=== PATIENT | male | born 1945 | race Caucasian/White ===

== ENCOUNTER → 2016-06-07 | Outpatient (CLI) | payer MEDICARE | END | disposition home or self-care (01) | LOC: GMAB 10:15 | PROVIDERS: ATTEND Family Medicine | DX: Z12.5 Encounter for screening for malignant neoplasm of prostate (principal); I10 Essential (primary) hypertension | CPT/HCPCS: 84439; 84443; 84481; G0103 ==

== ENCOUNTER → 2016-06-21 | Outpatient (CLI) | payer MEDICARE | END | disposition home or self-care (01) | LOC: GMAB 14:38 | PROVIDERS: ATTEND Family Medicine | DX: R94.6 Abnormal results of thyroid function studies (principal) ==

== ENCOUNTER 2016-06-27 09:51 | Inpatient (IN) | payer MEDICARE ==
--- NOTE | 2016-06-27 11:05 | ED.PDOC ---
History of Present Illness - General Chief Complaint: Respiratory Problem Stated Complaint: weight gain and sob Time Seen by Provider: 06/27/16 10:23 Source: patient Exam Limitations: no limitations - History of Present Illness Initial Comments: Mr. Daryl Reynaga with history of chf,cad stated that he had been gaining weight as well as progressively sob for the last 3 weeks and with exertional dyspnea and two pillow orthopnea no chest pain. Timing/Duration: other - 3 weeks Improving Factors: nothing Worsening Factors: nothing Associated Symptoms: shortness of breath Allergies/Adverse Reactions: Allergies Ibuprofen [From Motrin] Allergy (Mild, Verified 06/27/16 10:11) Rash Home Medications: Ambulatory Orders Amiodarone HCl [Cordarone] 100 mg PO DAILY 12/16/13 Atorvastatin Calcium [Lipitor] 20 mg PO BEDTIME 12/16/13 Carvedilol 25 mg PO BID 12/16/13 Digoxin [Lanoxin] 0.125 mg PO DAILY 12/16/13 Folic Acid 400 mcg PO DAILY 12/16/13 Furosemide 1 - 2 mg PO DAILY 12/16/13 Glipizide 10 mg PO BIDAC 12/16/13 [place] 3 Fatty Acids-[place] 6 FA [[place]-3 & [place]-6 Fish Oi] 1 cap PO BID Potassium Chloride Tab [K-Dur] 20 meq PO BID 12/16/13 Tamsulosin [Flomax] 0.4 mg PO BEDTIME 12/16/13 Aspirin [Aspirin Adult Low Dose] 81 mg PO DAILY 09/18/14 Clopidogrel Bisulfate [Plavix] 75 mg PO QD 09/18/14 Losartan Potassium 12.5 mg PO BEDTIME 09/18/14 Spironolactone 25 mg PO DAILY 09/18/14 Insulin Detemir [Levemir Pen] 30 u SUBCU BEDTIME 12/21/14 Cephalexin Monohydrate [Keflex] 500 mg PO TID #20 cap 01/21/16 Prednisone 5 mg PO QAM #12 tab 01/21/16 Review of Systems - Review of Systems Constitutional: States: no symptoms reported EENTM: States: no symptoms reported Respiratory: States: short of breath Cardiology: States: see HPI, edema Gastrointestinal/Abdominal: States: no symptoms reported Genitourinary: States: no symptoms reported Musculoskeletal: States: no symptoms reported Neurological: States: no symptoms reported Endocrine: States: no symptoms reported Hematologic/Lymphatic: States: no symptoms reported Past Medical History (General) - Patient Medical History Hx Seizures: No Hx Stroke: No Hx Dementia: No Hx Asthma: No Hx of COPD: Yes Hx Cardiac Disorders: Yes - has 7 stents Hx Congestive Heart Failure: Yes Hx Pacemaker: Yes - defibrillator Hx Hypertension: Yes Hx Thyroid Disease: No Hx Diabetes: Yes Hx Gastroesophageal Reflux: No Hx Renal Disease: No Hx Cancer: Yes - Prostate Hx of HIV: No Hx Hepatitis C: No Hx MRSA: No Surgical History: appendectomy, pacemaker, other - cardiac stent, left eye, prostate ,right shoulder ,left ankle - Vaccination History Hx Tetanus, Diphtheria Vaccination: No Hx Influenza Vaccination: No Hx Pneumococcal Vaccination: No - Social History Hx Tobacco Use: Yes Hx Alcohol Use: No Hx Substance Use: No Hx Substance Use Treatment: No Hx Depression: No Hx Physical Abuse: No Hx Emotional Abuse: No - Activities of Daily Living Patient Lives Alone: No - Hospice Agency (if applicable):: None - Female History Patient is a Female of Child Bearing Age (10 -59 yrs old): No Patient : No Family Medical History - Family History Mother Family History: Unknown Living Status: Cause of : "old age" Hx Family Asthma: No Hx Family Congestive Heart Failure: No Hx Family Hypertension: Yes Hx Family Stroke: Yes Hx Cardiac Disease: No Hx Family Diabetes: No Hx Family Cancer: No Hx Family;Other: kidney failure he thinks Father Living Status: Cause of : AR Physical Exam - Physical Exam General Appearance: Alert, Comfortable, No apparent distress Eye Exam: left other - artificial eye Ears, Nose, Throat: hearing grossly normal, normal ENT inspection, normal pharynx Neck: non-tender, full range of motion, supple, normal inspection Respiratory: chest non-tender, lungs clear, normal breath sounds, no respiratory distress, rales Cardiovascular/Chest: normal peripheral pulses, regular rate, rhythm, no gallop , no JVD, no murmur Peripheral Pulses: radial,right: 2+, radial,left: 2+ Gastrointestinal/Abdominal: normal bowel sounds, non tender, soft, no organomegaly, distended Back Exam: normal inspection, no CVA tenderness, no vertebral tenderness Extremity: normal range of motion, non-tender, normal inspection, pedal edema - 2+ Neurologic: no motor/sensory deficits, alert, normal mood/affect, oriented x 3 Skin Exam: normal color, warm/dry Progress - Results/Orders Results/Orders: Laboratory Results WBC 7.4 K/mm3 (4.8-10.8) 06/27/16 10:52 RBC 4.24 M/mm3 (4.70-6.10) L 06/27/16 10:52 Hgb 12.8 gm/dL (14.0-18.0) L 06/27/16 10:52 Hct 39.8 % (42.0-52.0) L 06/27/16 10:52 MCV 93.8 fl (80.0-94.0) 06/27/16 10:52 MCH 30.1 pg (27.0-31.0) 06/27/16 10:52 MCHC 32.1 g/dL (33.0-37.0) L 06/27/16 10:52 RDW 17.9 % (11.5-14.5) H 06/27/16 10:52 Plt Count 126 K/mm3 (130-400) L 06/27/16 10:52 MPV 8.9 fl (7.40-10.4) 06/27/16 10:52 Absolute Neuts (auto) 5.20 K/uL (1.8-6.8) 06/27/16 10:52 Absolute Lymphs (auto) 1.10 K/uL (1.0-3.4) 06/27/16 10:52 Absolute Monos (auto) 0.90 K/uL (0.2-0.8) H 06/27/16 10:52 Absolute Eos (auto) 0.20 K/uL (0.0-0.4) 06/27/16 10:52 Absolute Basos (auto) 0.10 K/uL (0.0-0.1) 06/27/16 10:52 Neutrophils % 70.7 % (42.0-78.0) 06/27/16 10:52 Lymphocytes % 14.5 % (20.0-50.0) L 06/27/16 10:52 Monocytes % 11.7 % (2.0-9.0) H 06/27/16 10:52 Eosinophils % 2.3 % (1.0-5.0) 06/27/16 10:52 Basophils % 0.8 % (0.0-2.0) 06/27/16 10:52 PT 15.7 SECONDS (9.4-12.5) H 06/27/16 10:52 INR 1.390 06/27/16 10:52 PTT (SP) 34.0 SECONDS (25.1-36.5) 06/27/16 10:52 Sodium 139 mmol/L (135-145) 06/27/16 10:52 Potassium 4.4 mmol/L (3.6-5.0) 06/27/16 10:52 Chloride 102 mmol/L (101-111) 06/27/16 10:52 Carbon Dioxide 27 mmol/L (21-31) 06/27/16 10:52 Anion Gap 14.4 (12-18) 06/27/16 10:52 BUN 28 mg/dL (7-18) H 06/27/16 10:52 Creatinine 1.78 mg/dL (0.6-1.3) H 06/27/16 10:52 BUN/Creatinine Ratio 15.7 (10-20) 06/27/16 10:52 Random Glucose 79 mg/dL (70-105) 06/27/16 10:52 Serum Osmolality 281.9 mOsm/L (275-295) 06/27/16 10:52 Calcium 8.7 mg/dL (8.4-10.2) 06/27/16 10:52 Magnesium 1.9 mg/dL (1.8-2.5) 06/27/16 10:52 Total Bilirubin 0.9 mg/dL (0.2-1.0) 06/27/16 10:52 Direct Bilirubin 0.3 mg/dL (0-0.2) H 06/27/16 10:52 Indirect Bilirubin 0.6 mg/dL (0.2-0.8) 06/27/16 10:52 AST 32 IU/L (10-42) 06/27/16 10:52 ALT 28 IU/L (10-60) 06/27/16 10:52 Alkaline Phosphatase 76 IU/L (42-121) 06/27/16 10:52 Creatine Kinase 76 IU/L (38-174) 06/27/16 10:52 CK-MB (CK-2) 3.0 ng/mL (0.0-4.4) 06/27/16 10:52 CK-MB (CK-2) % Not Reportable 06/27/16 10:52 Troponin I 0.03 ng/mL (0.01-0.05) 06/27/16 10:52 B-Natriuretic Peptide 1620.0 pg/ml (0-100) H* 06/27/16 10:52 Serum Total Protein 7.8 gm/dL (6.4-8.2) 06/27/16 10:52 Albumin 3.5 g/dl (3.2-5.5) 06/27/16 10:52 TSH 10.40 uIU/mL (0.34-5.60) H 06/27/16 10:52 Urine Color Yellow (Yellow) 06/27/16 12:00 Urine Appearance Clear (Clear) 06/27/16 12:00 Urine pH 5.5 (4.5-7.8) 06/27/16 12:00 Ur Specific [place] 1.015 (1.005-1.030) 06/27/16 12:00 Urine Protein Negative mg/dL 06/27/16 12:00 Urine Glucose (UA) Negative mg/dL (Negative) 06/27/16 12:00 Urine Ketones Negative mg/dL (NEGATIVE) 06/27/16 12:00 Urine Blood Small (Negative) H 06/27/16 12:00 Urine Nitrite Negative 06/27/16 12:00 Urine Bilirubin Negative (NEGATIVE) 06/27/16 12:00 Urine Urobilinogen 0.2 mg/dL (0.2-1.0) 06/27/16 12:00 Ur Leukocyte Esterase Negative (Negative) 06/27/16 12:00 Urine RBC 0-1 /hpf 06/27/16 12:00 Urine WBC 0-1 /hpf 06/27/16 12:00 Ur Epithelial Cells 0-1 /hpf 06/27/16 12:00 Amorphous Sediment Trace 06/27/16 12:00 Urine Bacteria 0 06/27/16 12:00 - EKG/XRAY/CT Comments: pacemaker rhythm XRAY: chest - cardiomegaly with mild interstitial edema,tiny left pleural effusion Departure - Departure Clinical Impression: Combined congestive systolic and diastolic heart failure Qualifiers: Congestive heart failure chronicity: acute on chronic Qualifier Code: (I50.43) Acute on chronic combined systolic (congestive) and diastolic (congestive) heart failure Hypothyroidism Qualifiers: Hypothyroidism type: unspecified Qualifier Code: (E03.9) Hypothyroidism, unspecified Time of Disposition: 14:10 - ADMIT to hospital D/W Dr. Bean-hospitalist Disposition: Discharge to Home or Self Care Condition: Fair Departure Forms: ED Discharge - Pt. Copy, Patient Portal Self Enrollment Home Medications: Ambulatory Orders Amiodarone HCl [Cordarone] 100 mg PO DAILY 12/16/13 Atorvastatin Calcium [Lipitor] 20 mg PO BEDTIME 12/16/13 Carvedilol 25 mg PO BID 12/16/13 Digoxin [Lanoxin] 0.125 mg PO DAILY 12/16/13 Folic Acid 400 mcg PO DAILY 12/16/13 Furosemide 1 - 2 mg PO DAILY 12/16/13 Glipizide 10 mg PO BIDAC 12/16/13 [place] 3 Fatty Acids-[place] 6 FA [[place]-3 & [place]-6 Fish Oi] 1 cap PO BID Potassium Chloride Tab [K-Dur] 20 meq PO BID 12/16/13 Tamsulosin [Flomax] 0.4 mg PO BEDTIME 12/16/13 Aspirin [Aspirin Adult Low Dose] 81 mg PO DAILY 09/18/14 Clopidogrel Bisulfate [Plavix] 75 mg PO QD 09/18/14 Losartan Potassium 12.5 mg PO BEDTIME 09/18/14 Spironolactone 25 mg PO DAILY 09/18/14 Insulin Detemir [Levemir Pen] 30 u SUBCU BEDTIME 12/21/14 Cephalexin Monohydrate [Keflex] 500 mg PO TID #20 cap 01/21/16 Prednisone 5 mg PO QAM #12 tab 01/21/16
[2016-06-27] MEDS ORDERED: BUMETANIDE 0.25 MG/ML VIAL IV ONE (11:11)
--- NOTE | 2016-06-27 11:51 | RAD ---
Study: Single Frontal View of the Chest. Indication:sob Comparison: January 20, 2016. Impression: Pacemaker. Cardiomegaly with mild interstitial edema. Atherosclerosis aorta. Tiny left pleural effusion. No pneumothorax. Electronically signed by: Bernardino Jamison MD 06/27/2016 11:50 AM SEPARATOR OPERATOR
--- NOTE | 2016-06-27 14:32 | HP ---
HISTORY OF PRESENT ILLNESS: This 71-year-old, white male was admitted to the hospital from the Emergency Room because of worsening shortness of breath and general body edema and weight gain. His increasing shortness of breath has been getting steadily worse for the last 3 weeks. He is having to sit up in order to breathe at nighttime instead of lying down flat. He has gained about 20 pounds of weight in the last 3 weeks as well. He has increased his Lasix to 40 mg b.i.d., but has failed outpatient therapy and is requiring more vigorous inpatient care to remedy some of the worsening symptoms. His last episode of congestive heart failure with pulmonary edema was in December of 2015. He has diabetes mellitus for which he takes Levemir, most recently 28 units at bedtime. Any type of mild exertion results in severe dyspnea. The patient is admitted to the hospital for specific treatment and care. PAST MEDICAL HISTORY: 1. History of diverticulitis. 2. Chronic congestive heart failure of undetermined etiology. 3. Chronic atrial fibrillation. 4. Chronic obstructive pulmonary disease. 5. Prostate cancer with radiation seed implants by Dr. Bowman. 6. Chronic osteoarthritis and hyperlipidemia. PAST SURGICAL HISTORY: 1. Cardiac catheterization with multiple stents placed. 2. Brain tumor resection in 1981. 3. 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 4. Knee surgery. 5. Pacemaker with defibrillator placement. 6. Shoulder surgery. 7. Appendectomy. 8. Recent removal of a clot in his bladder. CURRENT MEDICATIONS: Please refer to nursing list for an up to date list of verified home medications. ALLERGIES: MOTRIN. CODE STATUS: Full code. FAMILY HISTORY: Positive for coronary artery disease and diabetes mellitus. SOCIAL HISTORY: He has stopped smoking a number of years ago. REVIEW OF SYSTEMS: GENERAL: Significant weight gain recently, about 20 pounds in 3 weeks. No fever or chills evident. HEENT: No hearing or visual disturbances. LUNGS: Significant shortness of breath even on mild exertion and even at rest. Orthopnea. Cough without hemoptysis noted. CARDIOVASCULAR: Some irregular pulses with a history of atrial fibrillation. GASTROINTESTINAL: No significant vomiting, but decreased appetite evident. He drinks about half a gallon of water per day. EXTREMITIES: Increased swelling noted recently. NEUROLOGIC: Very tired and inability to do much work. PHYSICAL EXAMINATION: VITAL SIGNS: Afebrile. Pulse 80. Blood pressure 110/70. Pulse oximetry 92% on room air, up to 95% on nasal cannula at 2 liters. Weight 98.9 kg. GENERAL: The patient is awake, alert, oriented and communicative. HEENT: His left eye has a cloudy cornea and appears to be an artificial eye with no sight. NECK: Supple with increased jugular venous distention at about 40 degrees up to almost the angle of the jaw. LUNGS: Diminished breath sounds. Otherwise, an occasional rhonchi in the lateral lung kim. CARDIOVASCULAR: Heart tones have some slight irregularities. No significant gallops. No carotid bruits. ABDOMEN: Somewhat tender to touch, slightly distended with tympany and slight tenderness upon palpation. Bowel tones are present. No organomegaly evident. EXTREMITIES: 2+ pitting edema. NEUROLOGIC: No acute focal neurological deficits are noted. The patient is otherwise awake, alert, oriented and communicative. LABORATORY: White count 7,400, hemoglobin 12.8, INR 1.39. Chemistries show potassium 4.4, BUN 28, creatinine 1.78, glucose 79, calcium 8.7, bilirubin 0.3, direct total of 0.9. Liver enzymes normal. Troponin 0.03. Beta natriuretic peptide elevated at 1620, albumin 3.5, TSH elevated at 10.4. Chest x-ray does reveal some pulmonary edema. ASSESSMENT: 1. Chronic congestive heart failure with acute exacerbation, undetermined etiology, requiring further cardiac followup, having failed outpatient therapy treatment course. 2. Acute pulmonary edema, symptomatic, with orthopnea, weight gain, and extreme exertional dyspnea. 3. History of chronic obstructive pulmonary disease in an ex-smoker. 4. Diabetes mellitus on insulin therapy requiring adjustments of medications to assist with control. 5. Chronic renal insufficiency, slightly worse than usual with creatinine elevated. 6. Recent weight gain, probable fluid retention, contributing to the congestive heart failure. 7. Acute hypothyroidism, new diagnosis, with treatment and supplementation begun. 8. 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 PLAN: The patient is admitted to the hospital for fluid restrictions, parenteral diuresis, close followup and management to prevent further worsening of his kidney failure. Observe closely the pulmonary edema. Diabetic management to continue. Levemir and SCDs to assist with DVT prophylaxis. Close followup suggested. #[id number] [facility]
[2016-06-27] MEDS ORDERED: LEVALBUTEROL NEBS 1.25 MG/3 ML VIAL INH PRN (15:20)
[2016-06-27] MEDS ORDERED: DEXTROSE 50% 25 GM/50 ML SYG IV PRN (15:20)
[2016-06-27] MEDS ORDERED: GLUCAGON INJ 1 MG VIAL SUBCU PRN (15:20)
[2016-06-27] MEDS ORDERED: ONDANSETRON INJ 4 MG/2 ML VIAL IV PRN (15:20)
[2016-06-27] MEDS ORDERED: NITROGLYCERIN 0.4 MG 25 EA TAB SL PRN (15:20)
[2016-06-27] MEDS ORDERED: MAGNESIUM HYDROXIDE 30 ML UD PO PRN (15:20)
[2016-06-27] MEDS ORDERED: IV SET AND CAP CHANGE INJ INJ SCH (15:30)
[2016-06-27] MEDS ORDERED: POTASSIUM CHLORIDE 10 MEQ TAB PO ONE (15:51)
[2016-06-27] MEDS ORDERED: FUROSEMIDE INJ 40 MG/4 ML VIAL ONE (15:52)
[2016-06-27] MEDS ORDERED: ENOXAPARIN SODIUM 30 MG/0.3 ML SYG SUBCU ONE (15:52)
[2016-06-27] MEDS ORDERED: MAGNESIUM HYDROXIDE 30 ML UD PO ONE (16:15)
[2016-06-27] MEDS: ENOXAPARIN SODIUM 30 MG/0.3 ML SYG SUBCU SCH (16:26)
[2016-06-27] MEDS: BUMETANIDE TAB 2 MG TAB PO SCH (16:26)
[2016-06-27] MEDS: glipiZIDE 5 MG TAB PO SCH (16:30)
[2016-06-27] MEDS: DIGOXIN 0.125 MG TAB PO SCH (16:31)
[2016-06-27] MEDS: FUROSEMIDE INJ 40 MG/4 ML VIAL IV SCH (16:54)
[2016-06-27] MEDS: INSULIN LISPRO 100 UNITS/ML PEN SUBCU SCH ×2 (16:54→21:07)
[2016-06-27] MEDS: POTASSIUM CHLORIDE 10 MEQ TAB PO SCH (16:55)
[2016-06-27] MEDS ORDERED: LEVOTHYROXINE SODIUM 0.075 MG TAB ONE (20:02)
[2016-06-27] MEDS: SODIUM CHLORIDE 0.9% (FLUSH) 10 ML SYG IV SCH ×2 (20:29→20:30)
[2016-06-27] MEDS: LOSARTAN POTASSIUM 25 MG TAB PO SCH ×2 (20:29→20:30)
[2016-06-27] MEDS: IPRATROPIUM/ALBUTEROL 3 ML VIAL INH SCH (21:25)
[2016-06-28] MEDS: LEVOTHYROXINE SODIUM 0.075 MG TAB PO SCH (06:09)
[2016-06-28] MEDS: glipiZIDE 5 MG TAB PO SCH ×2 (06:32→16:49)
[2016-06-28] MEDS ORDERED: AMIODARONE HCL 200 MG TAB ONE (07:15)
[2016-06-28] MEDS ORDERED: SPIRONOLACTONE 25 MG TAB ONE (07:15)
[2016-06-28] MEDS ORDERED: ASPIRIN EC 81 MG TAB PO ONE (07:16)
[2016-06-28] MEDS ORDERED: predniSONE 5 MG TAB ONE (07:16)
[2016-06-28] MEDS: INSULIN LISPRO 100 UNITS/ML PEN SUBCU SCH ×4 (07:36→21:09)
[2016-06-28] MEDS: POTASSIUM CHLORIDE 10 MEQ TAB PO SCH ×2 (07:46→16:49)
[2016-06-28] MEDS: IPRATROPIUM/ALBUTEROL 3 ML VIAL INH SCH ×4 (08:34→19:25)
[2016-06-28] MEDS ORDERED: ASPIRIN (CHEWABLE) 81 MG TAB PO SCH (09:00)
[2016-06-28] MEDS: ASPIRIN EC 81 MG TAB PO SCH (09:11)
[2016-06-28] MEDS: BUMETANIDE TAB 2 MG TAB PO SCH (09:12)
[2016-06-28] MEDS: AMIODARONE HCL 200 MG TAB PO SCH (09:12)
[2016-06-28] MEDS: SPIRONOLACTONE 25 MG TAB PO SCH (09:13)
[2016-06-28] MEDS: FUROSEMIDE INJ 40 MG/4 ML VIAL IV SCH ×2 (09:13→16:50)
[2016-06-28] MEDS: SODIUM CHLORIDE 0.9% (FLUSH) 10 ML SYG IV SCH ×2 (09:13→20:32)
[2016-06-28] MEDS: predniSONE 5 MG TAB PO SCH (09:14)
[2016-06-28] MEDS ORDERED: CARVEDILOL 3.125 MG TAB PO SCH (10:00)
[2016-06-28] MEDS: DIGOXIN 0.125 MG TAB PO SCH (11:43)
[2016-06-28] MEDS: ENOXAPARIN SODIUM 30 MG/0.3 ML SYG SUBCU SCH (16:30)
[2016-06-28] MEDS: SODIUM CHLORIDE 0.9% (FLUSH) 10 ML SYG IV PRN (16:50)
--- NOTE | 2016-06-28 17:01 | PN ---
DATE: 06/28/16 SUBJECTIVE: The patient is sitting in the bed with his head elevated. He states that he feels better today with less edema. He still is on some oxygen supplementation but will be checked over by ambulation study to see if his needs for the oxygen persist or are they actually improving. OBJECTIVE: Significantly low blood pressure is noted with systolic in the 90s, afebrile, pulse oximetry 97% on nasal cannula, 95% on room air. Weight is generally stable. Intake and output shows a little bit more out than in, but still not significant. LUNGS: Slightly clear with slight improved respiratory lung sounds. ABDOMEN: Soft. LABORATORY: Hemoglobin 11.8. Chemistry shows potassium 3.7, BUN 30, creatinine is down to 1.64 while sugar this morning is only 61 fasting even off of his evening Levemir 30 units at bedtime dose from last night. He continues on sliding scale. Recheck beta natriuretic protein in the morning. ASSESSMENT: 1. Chronic congestive heart failure with an acute exacerbation of undetermined etiology requiring further cardiac evaluation with echocardiogram and followup after failed outpatient therapy treatment course. 2. Acute pulmonary edema, symptomatic with orthopnea, weight gain and exertional dyspnea. 3. History of chronic obstructive pulmonary disease in an ex-smoker. 4. Diabetes mellitus on insulin therapy requiring adjustments of medications to assist with control. 5. Chronic renal insufficiency slightly worse than usual with elevated creatinine level. 6. Recent weight gain, probable fluid retention contributing to the congestive heart failure exacerbation. 7. Acute hypothyroidism, new diagnosis with treatment and supplementation initiated. 8. 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 PLAN: Decreased dosing of insulin is to be initiated as well as a cut back on the Coreg because of the significantly low blood pressure. Increase activity level and observe response. Consider continued outpatient therapy and followup with Dr. Ríos in the clinic tomorrow if clinically stable. #[id number] [facility]
[2016-06-28] MEDS: LOSARTAN POTASSIUM 25 MG TAB PO SCH (20:32)
[2016-06-28] MEDS: CARVEDILOL 3.125 MG TAB PO SCH (20:32)
[2016-06-28] MEDS ORDERED: INSULIN DETEMIR 100 UNITS/ML PEN SUBCU SCH (21:00)
[2016-06-28] MEDS ORDERED: INSULIN DETEMIR 100 UNITS/ML PEN SUBCU ONE (21:05)
[2016-06-29] MEDS: LEVOTHYROXINE SODIUM 0.075 MG TAB PO SCH (06:02)
[2016-06-29] MEDS: glipiZIDE 5 MG TAB PO SCH ×2 (06:31→16:56)
[2016-06-29] MEDS: INSULIN LISPRO 100 UNITS/ML PEN SUBCU SCH ×4 (07:28→21:47)
[2016-06-29] MEDS: POTASSIUM CHLORIDE 10 MEQ TAB PO SCH ×2 (07:51→16:56)
[2016-06-29] MEDS: IPRATROPIUM/ALBUTEROL 3 ML VIAL INH SCH ×4 (08:30→20:30)
[2016-06-29] MEDS: BUMETANIDE TAB 2 MG TAB PO SCH (09:00)
[2016-06-29] MEDS: SPIRONOLACTONE 25 MG TAB PO SCH (09:01)
[2016-06-29] MEDS: ASPIRIN EC 81 MG TAB PO SCH (09:01)
[2016-06-29] MEDS: AMIODARONE HCL 200 MG TAB PO SCH (09:01)
[2016-06-29] MEDS: CARVEDILOL 3.125 MG TAB PO SCH ×2 (09:01→21:25)
[2016-06-29] MEDS: predniSONE 5 MG TAB PO SCH (09:01)
[2016-06-29] MEDS: SODIUM CHLORIDE 0.9% (FLUSH) 10 ML SYG IV SCH ×2 (09:02→21:27)
[2016-06-29] MEDS: FUROSEMIDE INJ 40 MG/4 ML VIAL IV SCH ×2 (09:02→16:58)
[2016-06-29] MEDS ORDERED: methylPREDNISolone SODIUM SUC 125 MG/2 ML VIAL IV ONE (11:51)
[2016-06-29] MEDS ORDERED: BUMETANIDE 0.25 MG/ML VIAL IV ONE (11:51)
[2016-06-29] MEDS: SODIUM CHLORIDE 0.9% (FLUSH) 10 ML SYG IV PRN (12:51)
[2016-06-29] MEDS: DIGOXIN 0.125 MG TAB PO SCH (12:51)
--- NOTE | 2016-06-29 13:06 | US ---
EXAM DESCRIPTION: Urinary bladder ultrasound. CLINICAL HISTORY: 71 years Male, retention COMPARISON: None. TECHNIQUE: Soft tissue grayscale ultrasound of the urinary bladder to include pre and post void residuals. FINDINGS: Urinary bladder was imaged. The prevoid bladder volume was 214 mL. The post void urinary bladder volume was 180 mL. IMPRESSION: High post void residual urinary bladder volume. Electronically signed by: Stanford Ambriz MD 06/29/2016 1:04 PM EXTRUSION MACHINE OPERATOR
[2016-06-29] MEDS: ENOXAPARIN SODIUM 30 MG/0.3 ML SYG SUBCU SCH (16:56)
--- NOTE | 2016-06-29 20:49 | PN ---
DATE: 06/29/16 SUPERVISING PHYSICIAN: Reji Bean M.D. SUBJECTIVE: The patient is sitting on the side of his bed. He has no complaints of shortness of breath or chest pain. He also says his edema is better but he is having a difficult time urinating. He said he has had surgery in the past and he has a difficult time urinating, and sometimes he retains a lot of urine. OBJECTIVE: VITAL SIGNS: He is afebrile, heart rate 72, blood pressure 113/72, respiratory rate 18, O2 sat is 93% on 2 liters nasal cannula. RESPIRATORY: Essentially clear bilaterally. He does have a few scattered crackles. CARDIAC : Regular rate and rhythm. ABDOMEN: Slightly distended, non-tender. Bowel sounds are positive. NEUROLOGIC: He is awake, alert and oriented times three. LABORATORY: His H&H has stabilized at 11.8 and 36.5. BUN 30, creatinine is slightly improved from yesterday at 1.54. BNP is 1,750, two days ago it was 1, 620. Urinary bladder ultrasound shows the prevoid bladder volume is 214 mL, the postvoid urinary bladder volume was 180 with an impression of a high postvoid residual of urinary bladder volume. All other labs and films have been reviewed via the EMR. ASSESSMENT: 1. Chronic congestive heart failure with an acute exacerbation of undetermined etiology requiring further cardiac evaluation with echocardiogram and followup after failed outpatient therapy treatment course. 2. Acute pulmonary edema, symptomatic with orthopnea, weight gain and exertional dyspnea that has improved. 3. History of chronic obstructive pulmonary disease in an ex-smoker. 4. Diabetes mellitus type 2 on insulin. 5. Chronic renal insufficiency that is slightly improved. 6. Recent weight gain probably fluid retention contributing to the congestive heart failure exacerbation. 7. Acute hypothyroidism. 8. 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 PLAN: I have increased his insulin to 15 units at bedtime. I have also given him an additional 1 mg IV Bumex as he had a 0.7 kg weight gain overnight. I am also going to place a Harris catheter to help with his urinary retention as well as for an accurate I and O. Hopefully we can discontinue that tomorrow. It may be prudent to have him do a urology consultation. He has seen in the past. He does have home oxygen and today his saturations have been better. He has no complaints of shortness of breath, so we discussed at length the need for oxygen at home and that it may help him when he is using any exertion. His ambulatory study showed that he dropped to 87% during ambulation and he recovered back to 92, so we will again encourage him to use his oxygen at home. Will continue to encourage good pulmonary hygiene. Hopefully he can be discharged tomorrow with close followup with his grocery supervisor. Dr. Bean is the collaborating physician and available for consultation. #[id number] [facility]
[2016-06-29] MEDS ORDERED: INSULIN DETEMIR 100 UNITS/ML PEN SUBCU SCH (21:00)
[2016-06-29] MEDS: LOSARTAN POTASSIUM 25 MG TAB PO SCH (21:25)
[2016-06-30 01:16] VITALS: BP 104/64; TEMP 98.7; O2SAT 88
--- NOTE | 2016-06-30 09:18 | DS ---
SUPERVISING PHYSICIAN: Reji Bean MD DISCHARGE DIAGNOSIS: 1. Urinary retention for greater than 10 hours with inability to place a Harris catheter or straight cath the patient. 2. Chronic congestive heart failure with an acute exacerbation of undetermined etiology, requiring further cardiac evaluation with echocardiogram and followup after failed outpatient therapy treatment course. 3. Acute pulmonary edema, symptomatic, with orthopnea, weight gain, and exertional dyspnea, improved. 4. History of chronic obstructive pulmonary disease in an ex-smoker. 5. Diabetes mellitus, type 2, on insulin. 6. Chronic renal insufficiency, improved. 7. Recent weight gain, most likely due to fluid retention. 8. Acute hypothyroidism. 9. 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 HISTORY OF PRESENT ILLNESS: This is a 71-year-old male patient who was admitted to the hospital from the Emergency Room on 06/27/16 because of worsening shortness of breath and general body edema and weight gain. His increasing shortness of breath had been getting steadily worse for the last 3 weeks. He had orthopnea and was unable to lie flat. He had gained about 20 pounds of weight in the last 3 weeks. He had increased his Lasix to 40 mg b.i.d., but failed outpatient therapy and was requiring more vigorous inpatient care. His last episode of congestive heart failure with pulmonary edema was in December of 2015. He has diabetes mellitus for which he takes Levemir. The patient was admitted to the hospital for specific treatment and care. He had a BNP of over 1600. He was initially given fluid restrictions as well as parenteral diuresis. His kidney functions were also monitored closely. He had some adjustments on his Levemir due to his low blood sugars. His dyspnea lessened and his vital signs were stable. This morning, he had a slight weight gain and he felt like he was still somewhat congested. His kidney function had improved to a creatinine of 1.54, but his BNP was about the same as it was two days ago at about 1750. He was given an additional dosing of 1 mg of Bumex in addition to his previous p.o. diuretics. Early in the afternoon, he had complained of inability to urinate and he felt some pressure in his bladder area. Bladder ultrasound was done and he had about 200 mL of urine. Since that time, he has had less than 140 mL of urine out and he has received the additional dosing of Bumex. I ordered a Harris catheter to be placed and a catheter, nor a straight cath was successful. The patient was very miserable. He not urinated for over ten hours. I called [facility] and Dr. Bowman wanted the patient transferred to [facility]. Dr. Park, who is the hospitalist at [facility], accepted him in transfer. DISCHARGE PLAN: The patient will be discharged to [facility]. [facility] hospitalist, Dr. Park, is the accepting physician and Dr. Bowman will be consulted. He will be transported by ambulance. He is to have a diabetic diet. His home medications were sent with his discharge information. DISCHARGE MEDICATIONS: 1. Carvedilol. 2. Lipitor. 3. Lanoxin. 4. Folic acid. 5. Furosemide. 6. Glipizide. 7. [place] 3 fatty acids. 8. K-Dur. 9. Amiodarone. 10. Spironolactone. 11. Losartan. 12. Aspirin. 13. Plavix. 14. Prednisone. 15. Levemir. Dr. Bean is the collaborating physician and available for consultation. #[id number] [facility]
[2016-06-30] MEDS ORDERED: INSULIN DETEMIR 100 UNITS/ML PEN SUBCU SCH (21:00)
== END 2016-06-30 00:50 | disposition short-term general hospital (02) | DRG 291 ==
LOC: ER 09:51 → MS 14:31
PROVIDERS: ADMIT Emergency Medicine; ATTEND Nurse Practitioner Acute Care
DX: I13.0 Hypertensive heart and chronic kidney disease with heart failure and stage 1 through stage 4 chronic kidney disease, or unspecified chronic kidney disease (principal); I50.43 Acute on chronic combined systolic (congestive) and diastolic (congestive) heart failure; I48.2 Chronic atrial fibrillation; N18.9 Chronic kidney disease, unspecified; J44.9 Chronic obstructive pulmonary disease, unspecified; E03.9 Hypothyroidism, unspecified; E11.9 Type 2 diabetes mellitus without complications; E78.5 Hyperlipidemia, unspecified; M19.90 Unspecified osteoarthritis, unspecified site; I25.10 Atherosclerotic heart disease of native coronary artery without angina pectoris; Q15.0 Congenital glaucoma; Z85.46 Personal history of malignant neoplasm of prostate; Z95.5 Presence of coronary angioplasty implant and graft; Z95.810 Presence of automatic (implantable) cardiac defibrillator; Z88.6 Allergy status to analgesic agent; Z87.891 Personal history of nicotine dependence; Z79.4 Long term (current) use of insulin; Z90.01 Acquired absence of eye; Z79.899 Other long term (current) drug therapy; Z79.82 Long term (current) use of aspirin; Z79.52 Long term (current) use of systemic steroids

== ENCOUNTER 2016-07-18 17:40 | Inpatient (IN) | payer MEDICARE ==
--- NOTE | 2016-07-18 18:05 | HP ---
HISTORY OF PRESENT ILLNESS: This 71 year-old white male is admitted to the hospital as a transfer from [facility] for Swing Bed admission and special rehabilitation for strengthening to allow him to safely return home when more capable of self care. He has had a significant recent past history in that he was admitted to our hospital the first of June but developed significant bladder outlet obstruction and they were unable to get a catheter placed, and he was transferred to [facility] on 06/30/16. He was evaluated by Dr. Bowman who did a repeat TURP to allow his bladder to more completely empty on 07/03/16. He was discharged from the hospital with catheter in place on 07/04/16. He went home but had increasing weight, increasing edema, increasing shortness of breath and marked weakness, and was readmitted to [facility] on 07/11/16 with blatant and worsening acute exacerbation of congestive heart failure. His beta natriuretic peptide was 2,200. He had increasing weight, edema and pulmonary edema on chest x-ray. His weight apparently was approximately 232, according to the patient, and it was down about 8 pounds to 224 pounds close to the time of his discharge today to our hospital for Swing Bed rehabilitation. He was feeling much improved but was still very weak to the point he was unable to fully manage his activities of daily living without increasing strength especially with legs being very weak. No recent falling. Shortness of breath is improved at rest, but he still get dyspneic on exertion. He has entered into Physical Therapy supervised rehabilitation combined with cardiopulmonary rehabilitation for strengthening purposes. PAST MEDICAL HISTORY: 1. History of diverticulitis. 2. Chronic congestive heart failure of undetermined etiology. 3. Chronic atrial fibrillation. 4. Chronic obstructive pulmonary disease. 5. History of prostate cancer with radiation seed implants by Dr. Bowman. 6. Chronic osteoarthritis with hyperlipidemia. 7. He has had an anterior wall myocardial infarction in 1990 and another anterolateral wall myocardial infarction in 2000. Recurring angioplasties and echocardiograms in the past, results not available. 8. History of severe aortic stenosis. 9. History of hypertension. 10. Elevated lipids. 11. Chronic renal insufficiency. 12. Left internal carotid artery and right internal carotid artery 30% stenosis. 13. Chronic obstructive pulmonary disease in an ex-smoker. 14. History of prostate cancer. PAST SURGICAL HISTORY: 1. Transurethral resection of the prostate in 2010 with radiation seed implants in the prostate in 2010. 2. Lumbar fusion in 2011. 3. Right knee arthroplasty in 1979. 4. Right shoulder surgery in 1973. 5. Intracardiac defibrillator implantation in 2005 with generator changed in 2011 and an upgrade in 2013. 6. Shoulder surgery. 7. Appendectomy in the past. 8. Removal of a clot from his bladder recently. 9. 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 10. Brain tumor resection in 1981. CURRENT MEDICATIONS: Please refer to nurses' list for a list of up to date verified home medications. ALLERGIES: MOTRIN. CODE STATUS: FULL CODE. FAMILY HISTORY: Positive for coronary artery disease and diabetes mellitus. SOCIAL HISTORY: The patient stopped smoking a number of years ago. He lives at home with his and 3 children. REVIEW OF SYSTEMS: Some weight gain recently. No fever or chills. HEENT: No hearing disturbances but decreased vision because of loss of the eye. LUNGS: Significant shortness of breath upon exertion showing some improvement. No significant cough. and less orthopnea. CARDIOVASCULAR: No palpitations or chest pains. GASTROINTESTINAL: Appetite is fairly good. EXTREMITIES: Less swelling now with treatment. NEUROLOGIC: Very tired and having difficulty in ambulating. PHYSICAL EXAMINATION: VITAL SIGNS: Afebrile, pulse 90, blood pressure 104/73, respirations 24, pulse oximetry pending. Weight was recorded as 101.6 kilos. Followup suggested. GENERAL: The patient is awake, alert and oriented. He is in no acute distress. He is able to give a good history. No other family members are present. His coloration is improved. CHEST: Lungs have some diminished breath sounds bilaterally but much clearer than before. CARDIOVASCULAR: Heart tones are somewhat distant and a very prominent systolic murmur suggesting an aortic valve stenosis located over the left anterior chest with radiation up towards the base of the heart. ABDOMEN: Generally soft, slightly obese with tympani present and bowel tones are fairly normal. EXTREMITIES: Much improved with decreased pitting edema. His ZAIDA hose are below the knee and have a tight tourniquet effect which is relieved by cutting the top 2 inches of the ZAIDA hose to release the significant tourniquet effect. NEUROLOGIC: He is weak, somewhat difficult in being able to transfer out of the bed and will require cardiopulmonary and physical therapy strengthening and exercise tolerance to see if we can increase his ability to function. LABORATORY: Pending. ASSESSMENT: 1. History of significant congestive heart failure with significant disability with decompensation showing improvement with diuresis and fluid restrictions. Etiology is to be determined. 2. Chronic obstructive pulmonary disease in an ex-smoker. 3. Severe cardiomegaly with ejection fraction noted to be 25% ischemic in origin. 4. History of pacemaker defibrillator implantation. 5. History of coronary artery disease with several myocardial infarctions in the past with total occlusion of the left anterior descending and the right coronary arteries with stent placements noted. 6. History of ventricular tachycardia in the past requiring shock therapy. 7. Chronic pulmonary hypertension with cor pulmonale. 8. History of hypertension. 9. History of hyperlipidemia. 10. Diabetes mellitus on insulin therapy. 11. Chronic renal insufficiency with a recent exacerbation showing improvement probably aggravated by congestive heart failure. 12. Recent history of urinary retention requiring recurrent transurethral resection of the prostate to open the bladder outlet and urological followup suggested. 13. Severe aortic stenosis. 14. History of hypothyroidism on supplementation. 15. 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 PLAN: The patient is admitted to Swing Bed for initiation of physical therapy and respiratory therapy monitored rehabilitation and strengthening. Close observation of daily weight and electrolytes are initiated with lab studies in the morning. Close followup suggested. The patient is generally doing a little better now than he has in the past and we hope that his strength will steadily improve to the point where he will be able to return home after the next few days of therapy. #[id number] [facility]
[2016-07-18] MEDS ORDERED: IPRATROPIUM/ALBUTEROL 3 ML VIAL NEB PRN (19:14)
[2016-07-18] MEDS ORDERED: DEXTROSE 50% 25 GM/50 ML SYG IV PRN (20:00)
[2016-07-18] MEDS ORDERED: HYDROcodone 5MG/APAP 325MG 1 EA TAB PO PRN (20:00)
[2016-07-18] MEDS ORDERED: SODIUM PHOS/BIPHOS ENEMA ADULT 133 ML BTTL PR PRN (20:00)
[2016-07-18] MEDS ORDERED: LEVALBUTEROL NEBS 1.25 MG/3 ML VIAL INH PRN (20:00)
[2016-07-18] MEDS: IPRATROPIUM/ALBUTEROL 3 ML VIAL INH SCH (20:00)
[2016-07-18] MEDS ORDERED: ACETAMINOPHEN 500 MG TAB PO PRN (20:00)
[2016-07-18] MEDS ORDERED: GLUCAGON INJ 1 MG VIAL SUBCU PRN (20:00)
[2016-07-18] MEDS ORDERED: IPRATROPIUM/ALBUTEROL 3 ML VIAL NEB ONE (20:00)
[2016-07-18] MEDS ORDERED: NON-FORMULARY MEDICATION 1 EA MIS (Carvedilol [Carvedilol] 6.25 MG) PO SCH (21:00)
[2016-07-18] MEDS ORDERED: ENOXAPARIN SODIUM 40 MG/0.4 ML SYG SUBCU SCH (21:00)
[2016-07-18] MEDS ORDERED: CARVEDILOL 3.125 MG TAB ONE (21:47)
[2016-07-18] MEDS ORDERED: ENOXAPARIN SODIUM 30 MG/0.3 ML SYG SUBCU ONE (21:48)
[2016-07-18] MEDS: SPIRONOLACTONE 25 MG TAB PO SCH (22:01)
[2016-07-18] MEDS: LOSARTAN POTASSIUM 25 MG TAB PO SCH (22:02)
[2016-07-18] MEDS: INSULIN DETEMIR 100 UNITS/ML PEN SUBCU SCH (22:47)
[2016-07-19] MEDS: LEVOTHYROXINE SODIUM 0.075 MG TAB PO SCH (05:53)
[2016-07-19] MEDS ORDERED: LEVOTHYROXINE SODIUM 0.075 MG TAB PO SCH (06:30)
[2016-07-19] MEDS ORDERED: INSULIN LISPRO 100 UNITS/ML PEN SUBCU SCH (07:00)
[2016-07-19] MEDS ORDERED: NON-FORMULARY MEDICATION 1 EA MIS (Glipizide [Glipizide] 10 MG) PO SCH (07:00)
[2016-07-19] MEDS ORDERED: CARVEDILOL 3.125 MG TAB ONE (07:12)
[2016-07-19] MEDS ORDERED: glipiZIDE 5 MG TAB ONE (07:13)
[2016-07-19] MEDS: glipiZIDE 5 MG TAB PO SCH ×2 (07:36→16:34)
[2016-07-19] MEDS: IPRATROPIUM/ALBUTEROL 3 ML VIAL INH SCH ×4 (08:32→20:25)
[2016-07-19] MEDS ORDERED: TOLTERODINE TARTRATE ER 4 MG CAP PO SCH (09:00)
[2016-07-19] MEDS ORDERED: THEOPHYLLINE 200 MG PO SCH (09:00)
[2016-07-19] MEDS ORDERED: FOLIC ACID 400 MCG PO SCH (09:00)
[2016-07-19] MEDS: AMIODARONE HCL 200 MG TAB PO SCH (09:03)
[2016-07-19] MEDS: ASPIRIN EC 81 MG TAB PO SCH (09:04)
[2016-07-19] MEDS: DOCUSATE SODIUM 100 MG CAP PO SCH (09:04)
[2016-07-19] MEDS: predniSONE 5 MG TAB PO SCH (09:04)
[2016-07-19] MEDS: CARVEDILOL 3.125 MG TAB PO SCH ×2 (09:05→20:42)
[2016-07-19] MEDS: SPIRONOLACTONE 25 MG TAB PO SCH ×2 (09:05→20:42)
[2016-07-19] MEDS: FUROSEMIDE 40 MG TAB PO SCH (09:05)
[2016-07-19] MEDS: FOLIC ACID 1 MG TAB PO SCH (09:29)
[2016-07-19] MEDS: DIGOXIN 0.125 MG TAB PO SCH (12:11)
[2016-07-19] MEDS: INSULIN LISPRO 100 UNITS/ML PEN SUBCU SCH (16:32)
--- NOTE | 2016-07-19 19:05 | PN ---
DATE: 07/19/16 SUPERVISING PHYSICIAN: Tejas Peck M.D. SUBJECTIVE: The patient is sitting in bed eating lunch. Says he still feels weak but his shortness of breath has been okay with oxygen continued. He has been doing fairly well with his initial rehab attempts. He remains afebrile. He did have some urinary retention requiring placement of a Harris catheter and since has not had any complaints. OBJECTIVE: VITAL SIGNS: T max 97.8, pulse 80, blood pressure 108/75, respirations 18, O2 sat 97% on room air at rest. I's and O's show 515 in, 1100 out with a negative balance of 585. Weight 102.3 kg. GENERAL: The patient appears to be in no distress, resting comfortably. CHEST: Lungs are diminished slightly towards the bases, but no obvious wheezing or rhonchi. HEART: Regular rate and rhythm, but notable systolic murmur. ABDOMEN: Soft, obese but non- tender. Positive bowel sounds. EXTREMITIES: Knee high ZAIDA hose are in place. No obvious edema noted. NEUROLOGIC: He is alert and oriented times three. LABORATORY: Initial on admission CBC showed white count 6.8, hemoglobin 11.7, hematocrit 36.2, platelet count 132,000. Differential showed to be within normal limits. Chemistries showed sodium 131, potassium 4.1, BUN 38, creatinine 1.63, glucose 185, calcium 8.5. Urinalysis is pending. RADIOLOGY: There are no radiographic studies for review on admission. ASSESSMENT: 1. History of significant congestive heart failure with significant disability with decompensation showing improvement with diuresis and fluid restrictions. Etiology is unknown. 2. Chronic obstructive pulmonary disease in an ex-smoker. 3. Severe cardiomegaly with ejection fraction noted to be 25% ischemic in origin. 4. History of pacemaker defibrillator implantation. 5. History of urinary tract infection on Acute Care with final culture results showing Enterococcus faecalis with completion of treatment for Swing Bed admission. 6. History of coronary artery disease with several myocardial infarctions in the past with total occlusion of the left anterior descending and the right coronary arteries with stent placements noted. 7. History of ventricular tachycardia in the past requiring shock therapy, now stable. 8. Chronic pulmonary hypertension with cor pulmonale. 9. History of hypertension. 10. History of hyperlipidemia. 11. Diabetes mellitus on insulin therapy. 12. Chronic renal insufficiency with a recent exacerbation showing some improvement probably aggravated by congestive heart failure. 13. Recent history of urinary retention requiring recurrent transurethral resection of the prostate to open the bladder outlet and urological followup suggested with the patient having acute renal retention after admission to Swing Bed requiring Harris placement. 14. Severe aortic stenosis. 15. History of hypothyroidism on supplementation. 16. 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 PLAN: Will continue to follow the patient closely through his physical therapy and rehabilitation on Swing Bed admission. Will note his daily weights and follow the patient closely, and provide medical as needed. He has a Harris catheter in place currently which will stay in place with intentions of removing within the next 24 to 48 hours with the patient having a significant history of past TURP and some acute urinary retention. Will need close monitoring and followup with Urology. Until discharge, hopefully anticipated within the next 3 to 4 days. Will continue to follow the patient closely and treat appropriately. #[id number] [facility]
[2016-07-19] MEDS ORDERED: ENOXAPARIN SODIUM 40 MG/0.4 ML SYG SUBCU ONE (19:44)
[2016-07-19] MEDS: LOSARTAN POTASSIUM 25 MG TAB PO SCH (20:42)
[2016-07-19] MEDS: ENOXAPARIN SODIUM 40 MG/0.4 ML SYG SUBCU SCH (20:43)
[2016-07-19] MEDS: INSULIN DETEMIR 100 UNITS/ML PEN SUBCU SCH (20:55)
[2016-07-19] MEDS ORDERED: ALPRAZolam 0.25 MG TAB PO ONE (23:23)
[2016-07-20] MEDS: LEVOTHYROXINE SODIUM 0.075 MG TAB PO SCH (06:12)
[2016-07-20] MEDS: INSULIN LISPRO 100 UNITS/ML PEN SUBCU SCH ×2 (07:12→16:53)
[2016-07-20] MEDS: IPRATROPIUM/ALBUTEROL 3 ML VIAL INH SCH ×4 (07:51→21:18)
[2016-07-20] MEDS: glipiZIDE 5 MG TAB PO SCH ×2 (08:09→16:49)
[2016-07-20] MEDS: NON-FORMULARY MEDICATION 1 EA MIS (Fluticasone Furoate-Vilanterol [Breo Ellipta 200-25 Mcg INH SCH (08:43)
--- NOTE | 2016-07-20 09:16 | PCM.CORE ---
Physician DVT/VTE - Nurse DVT Assessment & Total Each Risk Factor Represents 3 Points: Age over 75 years Each Risk Factor Represents 2 Points: Confined to bed >72 hours Each Risk Factor is 1 Point: Serious Lung disease (pnemonia <1month, COPD, emphysema,etc) DVT Assessment Score: 6 - 5 or more Very High Risk Treatments: Early Ambulation *, Sequential Compression Device Pharmacological: Enoxaparin 40mg SQ Daily
[2016-07-20] MEDS: AMIODARONE HCL 200 MG TAB PO SCH (09:31)
[2016-07-20] MEDS: predniSONE 5 MG TAB PO SCH (09:34)
[2016-07-20] MEDS: ASPIRIN EC 81 MG TAB PO SCH (09:34)
[2016-07-20] MEDS: CARVEDILOL 3.125 MG TAB PO SCH ×2 (09:34→21:05)
[2016-07-20] MEDS: FOLIC ACID 1 MG TAB PO SCH (09:34)
[2016-07-20] MEDS: SPIRONOLACTONE 25 MG TAB PO SCH ×2 (09:34→21:05)
[2016-07-20] MEDS: FUROSEMIDE 40 MG TAB PO SCH (09:34)
[2016-07-20] MEDS: DOCUSATE SODIUM 100 MG CAP PO SCH (09:34)
[2016-07-20] MEDS: DIGOXIN 0.125 MG TAB PO SCH (12:22)
[2016-07-20] MEDS: INSULIN DETEMIR 100 UNITS/ML PEN SUBCU SCH (21:04)
[2016-07-20] MEDS: ENOXAPARIN SODIUM 40 MG/0.4 ML SYG SUBCU SCH (21:05)
[2016-07-20] MEDS: LOSARTAN POTASSIUM 25 MG TAB PO SCH (21:05)
[2016-07-21] MEDS: LEVOTHYROXINE SODIUM 0.075 MG TAB PO SCH (06:05)
[2016-07-21] MEDS: NON-FORMULARY MEDICATION 1 EA MIS (Fluticasone Furoate-Vilanterol [Breo Ellipta 200-25 Mcg INH SCH (08:14)
[2016-07-21] MEDS: IPRATROPIUM/ALBUTEROL 3 ML VIAL INH SCH ×4 (08:14→21:19)
[2016-07-21] MEDS: glipiZIDE 5 MG TAB PO SCH ×2 (09:12→16:41)
[2016-07-21] MEDS: INSULIN LISPRO 100 UNITS/ML PEN SUBCU SCH ×2 (09:13→16:39)
[2016-07-21] MEDS: AMIODARONE HCL 200 MG TAB PO SCH (09:15)
[2016-07-21] MEDS: FOLIC ACID 1 MG TAB PO SCH (09:15)
[2016-07-21] MEDS: FUROSEMIDE 40 MG TAB PO SCH (09:15)
[2016-07-21] MEDS: SPIRONOLACTONE 25 MG TAB PO SCH ×2 (09:15→20:52)
[2016-07-21] MEDS: predniSONE 5 MG TAB PO SCH (09:16)
[2016-07-21] MEDS: CARVEDILOL 3.125 MG TAB PO SCH ×2 (09:16→20:52)
[2016-07-21] MEDS: DOCUSATE SODIUM 100 MG CAP PO SCH (09:16)
[2016-07-21] MEDS: ASPIRIN EC 81 MG TAB PO SCH (09:19)
[2016-07-21] MEDS: MAGNESIUM HYDROXIDE 30 ML UD PO PRN (11:37)
[2016-07-21] MEDS: DIGOXIN 0.125 MG TAB PO SCH (12:29)
--- NOTE | 2016-07-21 20:44 | PN ---
DATE: 07/21/16 SUPERVISING PHYSICIAN: Jeremy Ford M.D. SUBJECTIVE: The patient continues to show some improvement but continues to be significantly deconditioned, becoming short of breath easily with any exertional effort. He remains with a Harris catheter in place. We have been trying to contact Dr. Bowman in regards to management of this. Will leave in place until he can talk to him in regards to either removing it or leaving it in until he can be seen in clinic followup next week. It was again noted that when the Harris was placed, it was due to urinary retention and when it was placed well over 1100 mL of urine was returned. He remains afebrile. OBJECTIVE: VITAL SIGNS: Temperature 97.1, pulse 74, blood pressure 106/67, satting 92% nasal cannula at 2 liters. Glucoses are showing some instability with lows down to 58 up to 248. This is resulting of the diet that he is probably eating food that is not on his controlled diet in the hospital. He is on Glipizide as well as Levemir 15 units at bedtime. His Glipizide is being held due to the multiple lows he has been having. Will continue to watch this closely. Levemir continues at 15 units as well as sliding scale. LUNGS: Clear to auscultation, diminished towards the bases. HEART: Regular rate and rhythm. ABDOMEN: Obese but soft, non-tender. Positive bowel sounds. EXTREMITIES: Continue to show some trace edema towards the lower extremities, however, this is being well controlled with ZAIDA hose. NEUROLOGIC: He is alert and oriented times three. No additional laboratory or radiology studies were completed since admission. ASSESSMENT: 1. History of significant congestive heart failure with significant disability with decomposition showing improvement with continued diuresis and fluid restrictions. Current etiology unknown. 2. Chronic obstructive pulmonary disease in an ex-smoker. 3. Severe cardiomegaly with ejection fraction noted to be 25% ischemic in origin. 4. History of pacemaker defibrillator implantation. 5. History of urinary tract infection on Acute Care at [facility] with culture results indicating Enterococcus faecalis with completion of treatment prior to Swing Bed admission. 6. History of coronary artery disease with several myocardial infarctions in the past with total occlusion of the left anterior descending and the right coronary arteries with stent placements noted. 7. History of ventricular tachycardia in the past requiring shock therapy, now stable. 8. Chronic pulmonary hypertension with cor pulmonale. 9. History of hypertension. 10. History of hyperlipidemia. 11. Diabetes mellitus on insulin requiring ongoing adjustment of oral medications and Levemir. 12. Chronic renal insufficiency having a recent exacerbation showing improvement that was more likely secondary to congestive heart failure prior to admission to Swing Bed. 13. Recent history of urinary retention requiring recurrent transurethral resection of the prostate to open the bladder outlet and urological followup suggested with the patient once again having acute renal retention shortly after admission to Swing Bed requiring Harris placement. 14. Severe aortic stenosis. 15. History of hypothyroidism on supplementation. 16. 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 PLAN: Will continue to monitor the patient closely. He does have a Harris in and will plan to talk to Dr. Bowman as soon as possible in regards to possibly removing it or leaving it in. At this time, the Harris remains placed until we can talk to Dr. Bowman as he did have a significant amount of urine on previous insertion due to retention. He remains without any signs of infection at this time. Will place him on a Harris leg bag so that he can go out on pass. He is wanting to go on pass to watch one of his grandsons compete in an [employer] event here in [place]. Will continue to follow the patient closely through his rehabilitation and physical therapy efforts. Anticipate discharge at the discretion of Physical Therapy. Until then, will treat appropriately and monitor closely. #[id number] [facility]
[2016-07-21] MEDS: LOSARTAN POTASSIUM 25 MG TAB PO SCH (20:52)
[2016-07-21] MEDS: ENOXAPARIN SODIUM 40 MG/0.4 ML SYG SUBCU SCH (20:52)
[2016-07-21] MEDS: INSULIN DETEMIR 100 UNITS/ML PEN SUBCU SCH (20:53)
[2016-07-22] MEDS ORDERED: diphenhydrAMINE HCL 25 MG CAP ONE (01:10)
[2016-07-22] MEDS ORDERED: diphenhydrAMINE HCL 25 MG CAP PO ONE (01:11)
[2016-07-22] MEDS: LEVOTHYROXINE SODIUM 0.075 MG TAB PO SCH ×2 (06:21→12:31)
[2016-07-22] MEDS: INSULIN LISPRO 100 UNITS/ML PEN SUBCU SCH ×2 (07:25→17:23)
[2016-07-22] MEDS: glipiZIDE 5 MG TAB PO SCH ×2 (07:25→17:25)
[2016-07-22] MEDS: IPRATROPIUM/ALBUTEROL 3 ML VIAL INH SCH ×4 (08:45→19:50)
[2016-07-22] MEDS: NON-FORMULARY MEDICATION 1 EA MIS (Fluticasone Furoate-Vilanterol [Breo Ellipta 200-25 Mcg INH SCH (08:46)
[2016-07-22] MEDS: AMIODARONE HCL 200 MG TAB PO SCH (09:31)
[2016-07-22] MEDS: CARVEDILOL 3.125 MG TAB PO SCH ×2 (09:32→20:46)
[2016-07-22] MEDS: DOCUSATE SODIUM 100 MG CAP PO SCH (09:32)
[2016-07-22] MEDS: FOLIC ACID 1 MG TAB PO SCH (09:32)
[2016-07-22] MEDS: FUROSEMIDE 40 MG TAB PO SCH (09:32)
[2016-07-22] MEDS: ASPIRIN EC 81 MG TAB PO SCH (09:33)
[2016-07-22] MEDS: SPIRONOLACTONE 25 MG TAB PO SCH ×2 (09:33→20:46)
[2016-07-22] MEDS: predniSONE 5 MG TAB PO SCH (09:33)
[2016-07-22] MEDS ORDERED: LEVALBUTEROL NEBS 1.25 MG/3 ML VIAL NEB PRN (09:53)
[2016-07-22] MEDS ORDERED: MAGNESIUM HYDROXIDE 30 ML UD PO ONE (09:53)
[2016-07-22] MEDS ORDERED: FEBUXOSTAT 40 MG PO SCH (10:00)
[2016-07-22] MEDS ORDERED: POLYETHYLENE GLYCOL 3350 17 GM PCKT PO SCH (10:00)
[2016-07-22] MEDS ORDERED: THEOPHYLLINE 200 MG PO SCH (10:00)
[2016-07-22] MEDS: DIGOXIN 0.125 MG TAB PO SCH (12:31)
[2016-07-22] MEDS: ENOXAPARIN SODIUM 40 MG/0.4 ML SYG SUBCU SCH (20:46)
[2016-07-22] MEDS: LOSARTAN POTASSIUM 25 MG TAB PO SCH (20:46)
[2016-07-22] MEDS: INSULIN DETEMIR 100 UNITS/ML PEN SUBCU SCH (20:46)
[2016-07-23] MEDS: LEVOTHYROXINE SODIUM 0.075 MG TAB PO SCH (06:26)
[2016-07-23] MEDS: glipiZIDE 5 MG TAB PO SCH ×2 (08:01→17:17)
[2016-07-23] MEDS: IPRATROPIUM/ALBUTEROL 3 ML VIAL INH SCH ×4 (08:35→20:49)
[2016-07-23] MEDS: INSULIN LISPRO 100 UNITS/ML PEN SUBCU SCH ×2 (08:41→17:13)
[2016-07-23] MEDS: AMIODARONE HCL 200 MG TAB PO SCH (08:42)
[2016-07-23] MEDS: FUROSEMIDE 40 MG TAB PO SCH (08:43)
[2016-07-23] MEDS: CARVEDILOL 3.125 MG TAB PO SCH ×2 (08:43→20:34)
[2016-07-23] MEDS: SPIRONOLACTONE 25 MG TAB PO SCH ×2 (08:44→20:34)
[2016-07-23] MEDS: predniSONE 5 MG TAB PO SCH (08:44)
[2016-07-23] MEDS: FOLIC ACID 1 MG TAB PO SCH (08:45)
[2016-07-23] MEDS: DOCUSATE SODIUM 100 MG CAP PO SCH (08:45)
[2016-07-23] MEDS: ASPIRIN EC 81 MG TAB PO SCH (08:47)
[2016-07-23] MEDS: NON-FORMULARY MEDICATION 1 EA MIS (Fluticasone Furoate-Vilanterol [Breo Ellipta 200-25 Mcg INH SCH (09:00)
[2016-07-23] MEDS: DIGOXIN 0.125 MG TAB PO SCH (12:45)
[2016-07-23] MEDS: LOSARTAN POTASSIUM 25 MG TAB PO SCH (20:34)
[2016-07-23] MEDS: ENOXAPARIN SODIUM 40 MG/0.4 ML SYG SUBCU SCH (20:35)
[2016-07-23] MEDS: INSULIN DETEMIR 100 UNITS/ML PEN SUBCU SCH (21:02)
[2016-07-24] MEDS: ALPRAZolam 0.5 MG TAB PO PRN (00:20)
[2016-07-24] MEDS: LEVOTHYROXINE SODIUM 0.075 MG TAB PO SCH (06:16)
[2016-07-24] MEDS: glipiZIDE 5 MG TAB PO SCH ×2 (07:48→16:46)
[2016-07-24] MEDS: INSULIN LISPRO 100 UNITS/ML PEN SUBCU SCH ×2 (07:54→16:53)
[2016-07-24] MEDS: IPRATROPIUM/ALBUTEROL 3 ML VIAL INH SCH ×4 (08:50→20:49)
[2016-07-24] MEDS: NON-FORMULARY MEDICATION 1 EA MIS (Fluticasone Furoate-Vilanterol [Breo Ellipta 200-25 Mcg INH SCH (09:05)
[2016-07-24] MEDS: ASPIRIN EC 81 MG TAB PO SCH (09:33)
[2016-07-24] MEDS: SPIRONOLACTONE 25 MG TAB PO SCH ×2 (09:33→20:58)
[2016-07-24] MEDS: AMIODARONE HCL 200 MG TAB PO SCH (09:34)
[2016-07-24] MEDS: CARVEDILOL 3.125 MG TAB PO SCH ×2 (09:34→20:58)
[2016-07-24] MEDS: DOCUSATE SODIUM 100 MG CAP PO SCH (09:34)
[2016-07-24] MEDS: predniSONE 5 MG TAB PO SCH (09:35)
[2016-07-24] MEDS: FOLIC ACID 1 MG TAB PO SCH (09:35)
[2016-07-24] MEDS: FUROSEMIDE 40 MG TAB PO SCH (09:35)
[2016-07-24] MEDS ORDERED: MAGNESIUM HYDROXIDE 30 ML UD PO ONE ×2 (09:48→18:05)
[2016-07-24] MEDS: POLYETHYLENE GLYCOL 3350 17 GM PCKT PO SCH (10:15)
[2016-07-24] MEDS: DIGOXIN 0.125 MG TAB PO SCH (11:57)
[2016-07-24] MEDS ORDERED: FUROSEMIDE 40 MG TAB PO ONE (18:04)
[2016-07-24] MEDS: INSULIN DETEMIR 100 UNITS/ML PEN SUBCU SCH (20:57)
[2016-07-24] MEDS: LOSARTAN POTASSIUM 25 MG TAB PO SCH (20:58)
[2016-07-24] MEDS: ENOXAPARIN SODIUM 40 MG/0.4 ML SYG SUBCU SCH (20:59)
--- NOTE | 2016-07-24 21:45 | PN ---
DATE: 07/24/16 SUPERVISING PHYSICIAN: Tejas Peck M.D. SUBJECTIVE: The patient continues to work with Physical Therapy to recondition. He is slowly progressing. Continues to be short of breath at times. He does have his Harris catheter in place still without any signs of infection secondary to previous urinary retention prior to placement. OBJECTIVE: VITAL SIGNS: Temperature 96.9, pulse 81, blood pressure 100/58, respirations 20, satting 99% on nasal cannula at rest on 2 liters. Weight 106.6 kg which has somewhat increased steadily since admission. CHEST: Lungs are clear to auscultation, just diminished towards the bases bilaterally. There is no rhonchi, wheezing or rales. HEART: Regular rate and rhythm. ABDOMEN: Obese, soft, non-tender with positive bowel sounds. EXTREMITIES: There is no clubbing or cyanosis, just mild 1+ bilateral edema today with the ZAIDA hose being off for a length of time. NEUROLOGIC: He is alert and oriented times three. LABORATORY: Blood sugars have been ranging from 58 to 207. There are no radiographic studies for review. ASSESSMENT: 1. History of significant congestive heart failure with significant disability with deconditioning showing improvement with continued diuresis and fluid restrictions. Currently with unknown etiology. 2. Chronic obstructive pulmonary disease in an ex-smoker showing to be stable. 3. Severe cardiomegaly with ejection fraction noted to be 25% with ischemic origin. 4. History of pacemaker defibrillator implantation. 5. History of urinary tract infection on Acute Care with results from [facility] showing Enterococcus faecalis with completion of treatment prior to discharge and admission to Swing Bed. 6. History of coronary artery disease with several myocardial infarctions in the past with total occlusion of the left anterior descending and the right coronary arteries with stent placements. 7. History of ventricular tachycardia in the past requiring cardioversion, showing to be stable. 8. Chronic pulmonary hypertension with cor pulmonale. 9. History of hypertension. 10. History of hyperlipidemia. 11. Diabetes mellitus on insulin requiring ongoing adjustment of oral medications and Levemir. 12. Chronic renal insufficiency having a recent exacerbation showing improvement that was felt to be more likely secondary to congestive heart failure prior to admission to Swing Bed. 13. Recent history of urinary retention on Swing Bed initially requiring Harris placement with the patient having a recent transurethral resection of the prostate to open the bladder outlet and urological followup still required. 14. Severe aortic stenosis. 15. History of hypothyroidism on supplementation. 16. 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 PLAN: Will continue to follow the patient closely. He is showing some slight weight gain. I will plan to go ahead and add additional Lasix today to attempt to pull a little more fluid off. Hopefully this will help with his ability to participate with his physical therapy. Will continue to try to talk to Dr. Bowman in regards to the Harris placement and whether or not to remove it or leave it placed until he is seen in followup this coming week. He did go out on pass without any complications to watch his grandson compete in an [employer] event in [place]. Will anticipate discharge at the discretion of Physical Therapy. Until then, continue to monitor and treat appropriately. #[id number] [facility]
[2016-07-25] MEDS: ALPRAZolam 0.5 MG TAB PO PRN ×2 (02:54→22:16)
[2016-07-25] MEDS: glipiZIDE 5 MG TAB PO SCH ×2 (06:41→16:41)
[2016-07-25] MEDS: LEVOTHYROXINE SODIUM 0.075 MG TAB PO SCH (06:41)
[2016-07-25] MEDS: INSULIN LISPRO 100 UNITS/ML PEN SUBCU SCH ×2 (07:19→16:42)
[2016-07-25] MEDS: IPRATROPIUM/ALBUTEROL 3 ML VIAL INH SCH ×4 (08:16→20:38)
[2016-07-25] MEDS: predniSONE 5 MG TAB PO SCH (08:59)
[2016-07-25] MEDS: FUROSEMIDE 40 MG TAB PO SCH (08:59)
[2016-07-25] MEDS: CARVEDILOL 3.125 MG TAB PO SCH ×2 (08:59→20:39)
[2016-07-25] MEDS: AMIODARONE HCL 200 MG TAB PO SCH (09:00)
[2016-07-25] MEDS: SPIRONOLACTONE 25 MG TAB PO SCH ×2 (09:00→20:39)
[2016-07-25] MEDS: DOCUSATE SODIUM 100 MG CAP PO SCH (09:00)
[2016-07-25] MEDS: POLYETHYLENE GLYCOL 3350 17 GM PCKT PO SCH (09:00)
[2016-07-25] MEDS: FOLIC ACID 1 MG TAB PO SCH (09:00)
[2016-07-25] MEDS: ASPIRIN EC 81 MG TAB PO SCH (09:00)
[2016-07-25] MEDS: NON-FORMULARY MEDICATION 1 EA MIS (Fluticasone Furoate-Vilanterol [Breo Ellipta 200-25 Mcg INH SCH (09:32)
[2016-07-25] MEDS: DIGOXIN 0.125 MG TAB PO SCH (12:02)
[2016-07-25] MEDS: INSULIN DETEMIR 100 UNITS/ML PEN SUBCU SCH (20:39)
[2016-07-25] MEDS: LOSARTAN POTASSIUM 25 MG TAB PO SCH (20:39)
[2016-07-25] MEDS: ENOXAPARIN SODIUM 40 MG/0.4 ML SYG SUBCU SCH (20:39)
[2016-07-26] MEDS: LEVOTHYROXINE SODIUM 0.075 MG TAB PO SCH (06:06)
[2016-07-26] MEDS: IPRATROPIUM/ALBUTEROL 3 ML VIAL INH SCH ×4 (07:25→19:59)
[2016-07-26] MEDS: NON-FORMULARY MEDICATION 1 EA MIS (Fluticasone Furoate-Vilanterol [Breo Ellipta 200-25 Mcg INH SCH (08:39)
[2016-07-26] MEDS: AMIODARONE HCL 200 MG TAB PO SCH (08:47)
[2016-07-26] MEDS: predniSONE 5 MG TAB PO SCH (08:49)
[2016-07-26] MEDS: FOLIC ACID 1 MG TAB PO SCH (08:50)
[2016-07-26] MEDS: DOCUSATE SODIUM 100 MG CAP PO SCH (08:50)
[2016-07-26] MEDS: CARVEDILOL 3.125 MG TAB PO SCH ×2 (08:50→20:51)
[2016-07-26] MEDS: ASPIRIN EC 81 MG TAB PO SCH (08:51)
[2016-07-26] MEDS: SPIRONOLACTONE 25 MG TAB PO SCH ×2 (08:52→20:51)
[2016-07-26] MEDS: FUROSEMIDE 40 MG TAB PO SCH (08:52)
[2016-07-26] MEDS: POLYETHYLENE GLYCOL 3350 17 GM PCKT PO SCH (08:53)
[2016-07-26] MEDS: glipiZIDE 5 MG TAB PO SCH ×2 (09:24→16:33)
[2016-07-26] MEDS: INSULIN LISPRO 100 UNITS/ML PEN SUBCU SCH ×2 (09:25→16:32)
[2016-07-26] MEDS ORDERED: FUROSEMIDE INJ 40 MG/4 ML VIAL IV ONE (11:14)
[2016-07-26] MEDS: DIGOXIN 0.125 MG TAB PO SCH (11:33)
[2016-07-26] MEDS ORDERED: FUROSEMIDE 40 MG TAB PO ONE (13:00)
[2016-07-26] MEDS: MAGNESIUM HYDROXIDE 30 ML UD PO PRN (14:45)
[2016-07-26] MEDS: INSULIN DETEMIR 100 UNITS/ML PEN SUBCU SCH (20:50)
[2016-07-26] MEDS: LOSARTAN POTASSIUM 25 MG TAB PO SCH (20:50)
[2016-07-26] MEDS: ENOXAPARIN SODIUM 40 MG/0.4 ML SYG SUBCU SCH (20:50)
[2016-07-26] MEDS: ALPRAZolam 0.5 MG TAB PO PRN (22:05)
[2016-07-27] MEDS: LEVOTHYROXINE SODIUM 0.075 MG TAB PO SCH (06:11)
[2016-07-27] MEDS: INSULIN LISPRO 100 UNITS/ML PEN SUBCU SCH ×2 (07:15→16:27)
--- NOTE | 2016-07-27 08:36 | PN ---
SUPERVISING PHYSICIAN: Prerna Ford MD DATE: 07/26/16 SUBJECTIVE: The patient is continuing to work with physical therapy for strengthening and conditioning. He does have the Harris catheter. He has no complaints of chest pain, shortness of breath, nausea, vomiting, or diarrhea. OBJECTIVE: VITAL SIGNS: Afebrile. Heart rate 71. Respiratory rate 20. Blood pressure 100/66. O2 saturation 96%. GENERAL: This is a 71-year-old male patient who is lying in his hospital bed. LUNGS: Clear to auscultation bilaterally, somewhat diminished at the bases. CARDIAC: Regular rate and rhythm. ABDOMEN: Soft, nontender, nondistended. Bowel sounds are positive. He does have a Harris catheter in place. EXTREMITIES: No cyanosis or clubbing. There is +1 edema to the lower extremities bilaterally. NEUROLOGIC: Awake, alert and oriented times three. LABORATORY: Blood sugars have been running as low as 50, but he was asymptomatic and has been as high as 224. All other labs and films have been reviewed via the EMR. ASSESSMENT: 1. History of significant congestive heart failure with significant disability with deconditioning showing improvement with continued diuresis and fluid restrictions. Currently with unknown etiology. 2. Chronic obstructive pulmonary disease in an ex-smoker showing to be stable. 3. Severe cardiomegaly with ejection fraction noted to be 25% with ischemic origin. 4. History of pacemaker defibrillator implantation. 5. History of urinary tract infection on Acute Care with results from [facility] showing Enterococcus faecalis with completion of treatment prior to discharge and admission to Swing Bed. 6. History of coronary artery disease with several myocardial infarctions in the past with total occlusion of the left anterior descending and the right coronary arteries with stent placements. 7. History of ventricular tachycardia in the past requiring cardioversion, showing to be stable. 8. Chronic pulmonary hypertension with cor pulmonale. 9. History of hypertension. 10. History of hyperlipidemia. 11. Diabetes mellitus on insulin requiring ongoing adjustment of oral medications and Levemir. 12. Chronic renal insufficiency having a recent exacerbation showing improvement that was felt to be more likely secondary to congestive heart failure prior to admission to Swing Bed. 13. Recent history of urinary retention on Swing Bed initially requiring Harris placement with the patient having a recent transurethral resection of the prostate to open the bladder outlet and urological followup still required. 14. Severe aortic stenosis. 15. History of hypothyroidism on supplementation. 16. 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 PLAN: We will continue to monitor the patient closely. He will continue with physical therapy for his strengthening and conditioning. I have encouraged him to wear his ZAIDA hose in addition to his sequential compression devices to help with the lower extremity edema. I have also increased his Lasix. Originally, he was getting Lasix 160 mg daily. After he went to [facility], his Lasix was dropped to 40 mg, so I believe he will have to go up somewhat on his Lasix, so we will do 80 mg today and tomorrow and I will readjust as necessary. Dr. Bowman is at the hospital today and I have talked to him and he would like to evaluate the patient in his office today, so he will be going over to Dr. Bowman's office for evaluation for his Harris catheter. At this point, Dr. Bowman told me he would like to keep the catheter in place due to his extensive history of urinary retention and he would evaluate it when he saw him in clinic today. Otherwise, we will continue to monitor the patient closely and followup as needed. Dr. Ford is the collaborating physician and available for consultation. #[id number] [facility]
[2016-07-27] MEDS: IPRATROPIUM/ALBUTEROL 3 ML VIAL INH SCH ×4 (08:50→20:15)
[2016-07-27] MEDS: NON-FORMULARY MEDICATION 1 EA MIS (Fluticasone Furoate-Vilanterol [Breo Ellipta 200-25 Mcg INH SCH (08:50)
[2016-07-27] MEDS: glipiZIDE 5 MG TAB PO SCH (08:51)
[2016-07-27] MEDS: AMIODARONE HCL 200 MG TAB PO SCH (09:18)
[2016-07-27] MEDS: LINAGLIPTIN 5 MG TAB PO SCH (09:18)
[2016-07-27] MEDS: predniSONE 5 MG TAB PO SCH (09:19)
[2016-07-27] MEDS: CARVEDILOL 3.125 MG TAB PO SCH ×2 (09:20→21:06)
[2016-07-27] MEDS: FOLIC ACID 1 MG TAB PO SCH (09:20)
[2016-07-27] MEDS: SPIRONOLACTONE 25 MG TAB PO SCH ×2 (09:20→21:06)
[2016-07-27] MEDS: ASPIRIN EC 81 MG TAB PO SCH (09:20)
[2016-07-27] MEDS: DOCUSATE SODIUM 100 MG CAP PO SCH (09:21)
[2016-07-27] MEDS: POLYETHYLENE GLYCOL 3350 17 GM PCKT PO SCH (09:22)
[2016-07-27] MEDS: FUROSEMIDE 40 MG TAB PO SCH ×3 (09:23→10:13)
[2016-07-27] MEDS ORDERED: FUROSEMIDE 40 MG TAB PO ONE (09:27)
[2016-07-27] MEDS ORDERED: FUROSEMIDE 40 MG TAB ONE (11:47)
[2016-07-27] MEDS: DIGOXIN 0.125 MG TAB PO SCH (11:57)
[2016-07-27] MEDS ORDERED: TEMAZEPAM 15 MG CAP PO PRN (16:21)
[2016-07-27] MEDS ORDERED: FUROSEMIDE 40 MG TAB PO SCH (17:00)
[2016-07-27] MEDS: INSULIN DETEMIR 100 UNITS/ML PEN SUBCU SCH (21:05)
[2016-07-27] MEDS: LOSARTAN POTASSIUM 25 MG TAB PO SCH (21:05)
[2016-07-27] MEDS: ENOXAPARIN SODIUM 40 MG/0.4 ML SYG SUBCU SCH (21:06)
[2016-07-28] MEDS: LEVOTHYROXINE SODIUM 0.075 MG TAB PO SCH (06:10)
[2016-07-28 07:11] VITALS: BP 114/60; TEMP 97.6
[2016-07-28] MEDS: INSULIN LISPRO 100 UNITS/ML PEN SUBCU SCH (08:01)
[2016-07-28] MEDS: IPRATROPIUM/ALBUTEROL 3 ML VIAL INH SCH (08:18)
[2016-07-28] MEDS: NON-FORMULARY MEDICATION 1 EA MIS (Fluticasone Furoate-Vilanterol [Breo Ellipta 200-25 Mcg INH SCH (08:18)
[2016-07-28] MEDS ORDERED: FUROSEMIDE 40 MG TAB PO SCH (09:00)
[2016-07-28] MEDS: AMIODARONE HCL 200 MG TAB PO SCH (09:23)
[2016-07-28] MEDS: SPIRONOLACTONE 25 MG TAB PO SCH (09:24)
[2016-07-28] MEDS: LINAGLIPTIN 5 MG TAB PO SCH (09:24)
[2016-07-28] MEDS: POLYETHYLENE GLYCOL 3350 17 GM PCKT PO SCH (09:24)
[2016-07-28] MEDS: DOCUSATE SODIUM 100 MG CAP PO SCH (09:24)
[2016-07-28] MEDS: FOLIC ACID 1 MG TAB PO SCH (09:24)
[2016-07-28] MEDS: predniSONE 5 MG TAB PO SCH (09:24)
[2016-07-28] MEDS: ASPIRIN EC 81 MG TAB PO SCH (09:24)
[2016-07-28] MEDS: CARVEDILOL 3.125 MG TAB PO SCH (09:24)
--- NOTE | 2016-07-28 10:21 | RAD ---
Chest two views INDICATION: Decreased oxygen saturation cough possible aspiration COMPARISON: June 27 IMPRESSION: Cardiomegaly with minimal vascular congestion. New infiltrate in the right base with volume loss and slight elevation of the right hemidiaphragm. [employer] pacemaker/AICD. Trace right pleural fluid. Electronically signed by: Marck Millan MD 07/28/2016 10:19 AM CDT
[2016-07-28] MEDS: DIGOXIN 0.125 MG TAB PO SCH (11:44)
[2016-07-28 15:13] VITALS: O2SAT 97
--- NOTE | 2016-07-28 21:26 | DS ---
SUPERVISING PHYSICIAN: Tejas Peck M.D. DISCHARGE DIAGNOSIS: 1. Right lower lobe pneumonia. 2. Extreme weakness in spite of physical therapy with strengthening and conditioning during Swing Bed admission. 3. History of significant congestive heart failure with significant disability with deconditioning showing improvement with continued diuresis and fluid restrictions. Currently with unknown etiology. 4. Chronic obstructive pulmonary disease in an ex-smoker showing to be stable. 5. Severe cardiomegaly with ejection fraction noted to be 25% with ischemic origin. 6. History of pacemaker defibrillator implantation. 7. History of urinary tract infection on Acute Care with results from [facility] showing Enterococcus faecalis with completion of treatment prior to discharge and admission to Swing Bed. 8. History of coronary artery disease with several myocardial infarctions in the past with total occlusion of the left anterior descending and the right coronary arteries with stent placements. 9. History of ventricular tachycardia in the past requiring cardioversion, showing to be stable. 10. Chronic pulmonary hypertension with cor pulmonale. 11. History of hypertension. 12. History of hyperlipidemia. 13. Diabetes mellitus on insulin requiring ongoing adjustment of oral medications and Levemir. 14. Chronic renal insufficiency having a recent exacerbation showing improvement that was felt to be more likely secondary to congestive heart failure prior to admission to Swing Bed. 15. Recent history of urinary retention on Swing Bed initially requiring Harris placement with the patient having a recent transurethral resection of the prostate to open the bladder outlet and urological followup still required. 16. Severe aortic stenosis. 17. History of hypothyroidism on supplementation. 18. 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 HISTORY OF PRESENT ILLNESS: This is a 71 year-old male patient who originally was admitted to the hospital after a transfer from [facility] for Swing Bed admission and special rehab for strengthening to allow him to safely return home. Originally he had been admitted to [facility] in early June and was transferred to [facility] due to developing a significant bladder outlet obstruction and Dr. Bowman placed a catheter after he was transferred to [facility]. Dr. Bowman did a TURP there then he was discharged home on 07/04/16. Over the next few days, he had increasing weight gain, edema and shortness of breath, and was readmitted to [facility] on 07/11 with an acute exacerbation of his congestive heart failure. His BNP at that time was 2200. He was stabilized and at that point he was discharged to [facility] for Swing Bed admission. It is to be noted that he is normally on Lasix 80 mg b.i.d. His Lasix was changed to 40 mg daily upon discharge from [facility]. He was given physical therapy and rehabilitation, but he was very slowly progressing and during this time his weight increased as well as his lower extremity edema. His Lasix was increased to his previous dosage, but he became significantly weaker to the point where he was unable to participate in his physical therapy. Today in his room Physical Therapy just transferred him from his hospital bed to his chair. His heart rate went up into the 120s, oxygen saturation dropped into the low 80s. He became very dyspneic, but after a few minutes his vitals somewhat stabilized. A few minutes later his bedside nurse came in to give him some water. It has been reported that multiple times he has had difficulty swallowing and has actually choked on his water, but it was extremely noticeable today. Again his oxygen saturations dropped into the mid 80s. A chest x-ray was obtained and it was found that he had right lower lobe pneumonia. It is suspected that he had aspiration pneumonia as he was witnessed aspirating fluids prior to his x-ray. He has an ejection fraction of about 21 to 25%. He has become markedly weaker over the last few days, so after a lengthy discussion with the patient and his , and poor prognosis, it was decided that we would actively treat him for pneumonia but he and his agreed that his code status should be changed to do not resuscitate and continue active care. He will be discharged and be readmitted to the hospital as an inpatient status and be treated for suspected aspiration pneumonia. DISCHARGE PLAN: The patient will be discharged and readmitted to inpatient status at [facility]. We will resume his previous medications, including continuing his Lasix at 80 mg b.i.d. We will also put him on Levaquin and Clindamycin. I will also restart his breathing treatments with aggressive pulmonary hygiene. Hopefully his condition will improve and he can either be discharged home or be readmitted to Swing Bed admission. DISCHARGE MEDICATIONS: 1. Carvedilol. 2. Atorvastatin. 3. digoxin. 4. Folic acid. 5. Furosemide. 6. [place]-3 fatty acids. 7. Amiodarone. 8. Spironolactone. 9. Losartan. 10. Aspirin. 11. Prednisone. 12. Levemir. 13. Synthroid. 14. Xopenex. 15. NovoLog insulin. 16. Breo ellipta. 17. Theophylline. 18. Tolterodine. 19. DuoNeb. 20. Febuxostat. 21. Metolazone. Dr. Peck is the collaborating physician available for consultation. #[id number] [facility]
== END 2016-07-28 12:16 | disposition short-term general hospital (02) | DRG 555 ==
LOC: MS 17:40 → UNDOADMIN 17:40 → UNDODISIN 07-28 12:16
PROVIDERS: ADMIT Family Medicine; ATTEND Nurse Practitioner Acute Care
DX: M62.81 Muscle weakness (generalized) (principal); J69.0 Pneumonitis due to inhalation of food and vomit; I13.0 Hypertensive heart and chronic kidney disease with heart failure and stage 1 through stage 4 chronic kidney disease, or unspecified chronic kidney disease; I50.9 Heart failure, unspecified; I48.2 Chronic atrial fibrillation; J44.9 Chronic obstructive pulmonary disease, unspecified; M19.90 Unspecified osteoarthritis, unspecified site; E78.5 Hyperlipidemia, unspecified; I25.2 Old myocardial infarction; N18.9 Chronic kidney disease, unspecified; I65.23 Occlusion and stenosis of bilateral carotid arteries; I25.10 Atherosclerotic heart disease of native coronary artery without angina pectoris; I35.0 Nonrheumatic aortic (valve) stenosis; E03.9 Hypothyroidism, unspecified; H54.62 Unqualified visual loss, left eye, normal vision right eye; Q15.0 Congenital glaucoma; H26.9 Unspecified cataract; N40.1 Benign prostatic hyperplasia with lower urinary tract symptoms; R33.9 Retention of urine, unspecified; Z66 Do not resuscitate; Z85.46 Personal history of malignant neoplasm of prostate; Z95.810 Presence of automatic (implantable) cardiac defibrillator; Z92.3 Personal history of irradiation; Z87.891 Personal history of nicotine dependence; Z98.1 Arthrodesis status; Z88.6 Allergy status to analgesic agent; Z79.4 Long term (current) use of insulin; Z95.5 Presence of coronary angioplasty implant and graft; Z79.84 Long term (current) use of oral hypoglycemic drugs; Z98.890 Other specified postprocedural states

== ENCOUNTER 2016-07-28 12:21 | Inpatient (IN) | payer MEDICARE ==
--- NOTE | 2016-07-28 12:22 | HP ---
SUPERVISING PHYSICIAN: Tejas Peck M.D. CHIEF COMPLAINT: Weakness and shortness of breath. HISTORY OF PRESENT ILLNESS: This is a 71 year-old male patient who originally was admitted to the hospital after a transfer from [facility] for Swing Bed admission and special rehab for strengthening to allow him to safely return home. Originally he had been admitted to [facility] in early June and was transferred to [facility] due to developing a significant bladder outlet obstruction and Dr. Bowman placed a catheter after he was transferred to [facility]. Dr. Bowman did a TURP there then he was discharged home on 07/04/16. Over the next few days, he had increasing weight gain, edema and shortness of breath, and was readmitted to [facility] on 07/11 with an acute exacerbation of his congestive heart failure. His BNP at that time was 2200. He was stabilized and at that point he was discharged to [facility] for Swing Bed admission. It is to be noted that he is normally on Lasix 80 mg b.i.d. His Lasix was changed to 40 mg daily upon discharge from [facility]. He was given physical therapy and rehabilitation, but he was very slowly progressing and during this time his weight increased as well as his lower extremity edema. His Lasix was increased to his previous dosage, but he became significantly weaker to the point where he was unable to participate in his physical therapy. Today in his room Physical Therapy just transferred him from his hospital bed to his chair. His heart rate went up into the 120s, oxygen saturation dropped into the low 80s. He became very dyspneic, but after a few minutes his vitals somewhat stabilized. A few minutes later his bedside nurse came in to give him some water. It has been reported that multiple times he has had difficulty swallowing and has actually choked on his water, but it was extremely noticeable today. Again his oxygen saturations dropped into the mid 80s. A chest x-ray was obtained and it was found that he had right lower lobe pneumonia. It is suspected that he had aspiration pneumonia as he was witnessed aspirating fluids prior to his x-ray. He has an ejection fraction of about 21 to 25%. He has become markedly weaker over the last few days, so after a lengthy discussion with the patient and his , and poor prognosis, it was decided that we would actively treat him for pneumonia but he and his agreed that his code status should be changed to do not resuscitate and continue active care. He will be discharged and be readmitted to the hospital as an inpatient status and be treated for suspected aspiration pneumonia. PAST MEDICAL HISTORY: 1. History of diverticulitis. 2. Chronic congestive heart failure of undetermined etiology. 3. Chronic atrial fibrillation. 4. Chronic obstructive pulmonary disease. 5. History of prostate cancer with radiation seed implants by Dr. Bowman. 6. Chronic osteoarthritis with hyperlipidemia. 7. He has had an anterior wall myocardial infarction in 1990 and another anterolateral wall myocardial infarction in 2000. Recurring angioplasties and echocardiograms in the past, results not available. 8. History of severe aortic stenosis. 9. History of hypertension. 10. Elevated lipids. 11. Chronic renal insufficiency. 12. Left internal carotid artery and right internal carotid artery 30% stenosis. 13. Chronic obstructive pulmonary disease in an ex-smoker. 14. History of prostate cancer. PAST SURGICAL HISTORY: 1. Transurethral resection of the prostate in 2010 with radiation seed implants in the prostate in 2010. 2. Lumbar fusion in 2011. 3. Right knee arthroplasty in 1979. 4. Right shoulder surgery in 1973. 5. Intracardiac defibrillator implantation in 2005 with generator changed in 2011 and an upgrade in 2013. 6. Shoulder surgery. 7. Appendectomy in the past. 8. Removal of a clot from his bladder recently. 9. 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 10. Brain tumor resection in 1981. CURRENT MEDICATIONS: Please refer to nurses' list for a list of up to date verified home medications. ALLERGIES: MOTRIN. CODE STATUS: DO NOT RESUSCITATE. FAMILY HISTORY: Positive for coronary artery disease and diabetes mellitus. SOCIAL HISTORY: The patient stopped smoking a number of years ago. He lives at home with his and 3 children. REVIEW OF SYSTEMS: GENERAL: Recent weight gain due to decrease in his Lasix dosage, but denies any fever or chills. HEENT: Denies any sinus symptoms, ear pain, vision changes or sore throat. LUNGS: Positive for shortness of breath as well as coughing. Denies any wheezing. CARDIOVASCULAR: Denies palpitations , chest pain or tachycardia. GASTROINTESTINAL: Denies abdominal pain, nausea, vomiting, diarrhea or constipation. EXTREMITIES: Complains of edema especially to the lower extremities. NEUROLOGIC: He complains of weakness and at times he has dizziness with ambulation. Denies seizure activity. PHYSICAL EXAMINATION: VITAL SIGNS: He is afebrile, pulse rate 77, blood pressure 100/67, respiratory rate 22, O2 sat 93% on 2 liters nasal cannula. GENERAL: This is a 71 year-old male patient who is sitting in his chair in his hospital room. He is in moderate respiratory distress. He is very tired- appearing. HEENT: Normocephalic and atraumatic. Pupils are equal and reactive. Oropharynx is clear. NECK: Supple without mass. CHEST: Scattered crackles throughout all lung kim and somewhat diminished at the bases. He is somewhat tachypneic. His respiratory rate is normal except with exertion he becomes quite tachypneic with rates up into the upper 20s. CARDIOVASCULAR: Distant heart sounds but regular rate and rhythm. ABDOMEN: Soft, nondistended. Bowel sounds are positive. EXTREMITIES: Bilateral edema from mid lower leg distally at about +2. There is no cyanosis or clubbing. SKIN: He is pale but his skin is warm and dry. NEUROLOGIC: He is awake, alert and oriented times three. LABORATORY: WBCs are 7.7, hemoglobin 11.2, hematocrit 35, platelets 103. Sodium 131, potassium 5.4, chloride 97, BUN 45, creatinine 1.96, glucose 175. BNP is 1,780. Chest x-ray shows cardiomegaly with minimal vascular congestion, new infiltrate in the right base with volume loss and slight elevation of the right hemidiaphragm with a multi-lead pacemaker/AICD and trace of right pleural fluid. All other labs and films have been reviewed via the EMR. ASSESSMENT: 1. Right lower lobe pneumonia, suspect aspiration pneumonia. 2. Extreme weakness in spite of conditioning per Physical Therapy in prior admission to Swing Bed. 3. History of significant congestive heart failure with significant disability with deconditioning that has not shown improvement in spite of continued diuresis and fluid restrictions. His last ejection fraction was around 21 %. 4. Chronic obstructive pulmonary disease in an ex-smoker. 5. Severe cardiomegaly. 6. History of pacemaker/defibrillator implantation. 7. History of urinary tract infection on previous admission that showed Enterococcus faecalis. Completion of treatment prior to his Swing Bed admission. 8. History of coronary artery disease with several myocardial infarctions. 9. History of ventricular tachycardia in the past requiring cardioversion, currently stable. 10. Chronic pulmonary hypertension with cor pulmonale. 11. History of hypertension. 12. History of hyperlipidemia. 13. Diabetes mellitus on insulin. 14. Chronic renal insufficiency. 15. Recent history of urinary retention on Swing Bed initially requiring Harris placement being seen by Dr. Bowman. Dr. Bowman saw him on Sunday and initially wanted his Harris catheter discontinued on discharge. 16. Severe aortic stenosis. 17. History of hypothyroidism. 18. 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 PLAN: We will admit the patient to the hospital as an inpatient . I suspect that his pneumonia is due to aspiration, although we cannot rule out an infectious process. At this point, we will start him on Clindamycin as well as Levaquin. Will continue his aggressive pulmonary hygiene, including breathing treatments. I will restart his home medications, including his Lasix at 80 mg twice a day. His Lasix was increased yesterday and so I will hold off on giving him additional Lasix for now. He may need that in the morning. He has a PPI for ulcer prophylaxis and Lovenox for DVT prophylaxis. At this point, we will aggressively treat him but he and his have discussed at length and he is a do not resuscitate. Given his poor prognosis, this is probably the best decision but we will try to aggressively treat him. Hopefully he can be discharged home or at least to a complete Swing Bed for strengthening and conditioning. I have ordered labs for in the morning as well as a chest x-ray. We will continue to monitor the patient closely and follow as needed. #[id number] [facility]
[2016-07-28] MEDS ORDERED: IPRATROPIUM/ALBUTEROL 3 ML VIAL NEB ONE (12:28)
[2016-07-28] MEDS ORDERED: SODIUM CHLORIDE 0.9% (FLUSH) 10 ML SYG IV PRN (14:49)
[2016-07-28] MEDS ORDERED: IV SET AND CAP CHANGE INJ INJ SCH (15:00)
[2016-07-28] MEDS ORDERED: GLUCAGON INJ 1 MG VIAL SUBCU PRN (15:59)
[2016-07-28] MEDS ORDERED: LEVALBUTEROL NEBS 1.25 MG/3 ML VIAL NEB PRN (15:59)
[2016-07-28] MEDS ORDERED: DEXTROSE 50% 25 GM/50 ML SYG IV PRN (15:59)
[2016-07-28] MEDS ORDERED: ACETAMINOPHEN 325 MG TAB PO PRN (15:59)
[2016-07-28] MEDS ORDERED: levoFLOXacin 750MG IV 750 MG in PREMIX BAG 1 BAG IVPB SCH (16:00)
[2016-07-28] MEDS: PANTOPRAZOLE SODIUM IV 40 MG VIAL IV SCH (16:24)
[2016-07-28] MEDS: levoFLOXacin 750MG IV 750 MG in PREMIX BAG 1 BAG IVPB SCH (16:28)
[2016-07-28] MEDS: IPRATROPIUM/ALBUTEROL 3 ML VIAL INH SCH ×2 (16:28→20:00)
[2016-07-28] MEDS ORDERED: CLINDAMYCIN IV 900MG 50 ML IVPB ONE ×2 (16:49→21:56)
[2016-07-28] MEDS: INSULIN LISPRO 100 UNITS/ML PEN SUBCU SCH ×2 (18:07→21:16)
[2016-07-28] MEDS: IV SET AND CAP CHANGE INJ INJ SCH (18:08)
[2016-07-28] MEDS: CLINDAMYCIN IV 900MG 900 MG in PREMIX BAG 1 BAG IVPB SCH (18:08)
[2016-07-28] MEDS ORDERED: CARVEDILOL 3.125 MG TAB ONE (20:22)
[2016-07-28] MEDS ORDERED: NON-FORMULARY MEDICATION 1 EA MIS (Carvedilol [Carvedilol] 6.25 MG) PO SCH (21:00)
[2016-07-28] MEDS: LOSARTAN POTASSIUM 25 MG TAB PO SCH (21:13)
[2016-07-28] MEDS: SPIRONOLACTONE 25 MG TAB PO SCH (21:13)
[2016-07-28] MEDS: INSULIN DETEMIR 100 UNITS/ML PEN SUBCU SCH (21:14)
[2016-07-28] MEDS ORDERED: LORazepam 0.5 MG TAB PO PRN (23:48)
[2016-07-29] MEDS ORDERED: ALPRAZolam 0.25 MG TAB ONE (00:07)
[2016-07-29] MEDS: CLINDAMYCIN IV 900MG 900 MG in PREMIX BAG 1 BAG IVPB SCH ×3 (00:54→17:26)
[2016-07-29] MEDS: TEMAZEPAM 15 MG CAP PO PRN (02:22)
[2016-07-29] MEDS: LEVOTHYROXINE SODIUM 0.075 MG TAB PO SCH (06:45)
[2016-07-29] MEDS: INSULIN LISPRO 100 UNITS/ML PEN SUBCU SCH ×4 (07:17→21:30)
[2016-07-29] MEDS ORDERED: predniSONE 10 MG TAB ONE (07:27)
[2016-07-29] MEDS ORDERED: CLINDAMYCIN IV 900MG 50 ML IVPB ONE ×3 (07:28→23:58)
[2016-07-29] MEDS ORDERED: CARVEDILOL 3.125 MG TAB ONE (07:28)
--- NOTE | 2016-07-29 07:29 | RAD ---
EXAM: Two view chest. INDICATION: Chest pain. COMPARISON: Chest x-ray: 07/28/16. FINDINGS: There is a right basilar airspace opacity with right pleural effusion. The heart is enlarged with a left chest wall pacemaker/AICD in place. There is no pneumothorax. The bones are unchanged. IMPRESSION: Right basilar airspace opacity with right pleural effusion Electronically signed by: Jonnathan Corcoran MD 07/29/2016 7:28 AM CDT
[2016-07-29] MEDS: NON-FORMULARY MEDICATION 1 EA MIS (Fluticasone Furoate-Vilanterol [Breo Ellipta 200-25 Mcg IN SCH (08:20)
[2016-07-29] MEDS: IPRATROPIUM/ALBUTEROL 3 ML VIAL NEB SCH ×4 (08:20→20:17)
[2016-07-29] MEDS: AMIODARONE HCL 200 MG TAB PO SCH (08:51)
[2016-07-29] MEDS: POLYETHYLENE GLYCOL 3350 17 GM PCKT PO SCH (08:51)
[2016-07-29] MEDS: CARVEDILOL 3.125 MG TAB PO SCH ×2 (08:52→20:27)
[2016-07-29] MEDS: SPIRONOLACTONE 25 MG TAB PO SCH ×2 (08:52→20:27)
[2016-07-29] MEDS: FOLIC ACID 1 MG TAB PO SCH (08:52)
[2016-07-29] MEDS: FUROSEMIDE 40 MG TAB PO SCH ×2 (08:52→17:32)
[2016-07-29] MEDS: predniSONE 5 MG TAB PO SCH (08:54)
[2016-07-29] MEDS ORDERED: DIGOXIN 0.125 MG TAB PO SCH (09:00)
[2016-07-29] MEDS ORDERED: methylPREDNISolone SODIUM SUC 125 MG/2 ML VIAL IV ONE (14:17)
[2016-07-29] MEDS ORDERED: SODIUM CHLORIDE 0.9% 10 ML VIAL ONE (16:09)
[2016-07-29] MEDS: PANTOPRAZOLE SODIUM IV 40 MG VIAL IV SCH (16:15)
--- NOTE | 2016-07-29 16:15 | PN ---
DATE: 07/29/16 SUPERVISING PHYSICIAN: Tejas Peck M.D. SUBJECTIVE: The patient is lying in his hospital bed. His and son are at his bedside. He continues complaints of some shortness of breath but he does state he feels a little bit better today and he has not choked on any of his food today. He denies any chest pain, nausea or vomiting. OBJECTIVE: VITAL SIGNS: He is afebrile, heart rate 69, blood pressure 94/62, respiratory rate 18, O2 sat is 95%. RESPIRATORY: Diminished breath sounds throughout with a few scattered crackles in the apices. It is much improved since yesterday. His respiratory rate is normal at rest. CARDIOVASCULAR: Distant heart sounds but regular rate and rhythm. ABDOMEN: Soft, nondistended, non-tender. Bowel sounds are positive. He does have a Harris catheter in place. EXTREMITIES: He has +1 edema to bilateral lower extremities. NEUROLOGIC : He is awake, alert and oriented times three. LABORATORY: WBCs 7.4, hemoglobin 11, hematocrit 34.1, platelets 93. Sodium 131 , potassium 4.9, chloride 97, carbon dioxide 25, BUN 41, creatinine 1.75. Blood sugar 171. Bilirubin 1.3. Chest x-ray shows right basilar airspace opacity with a right pleural effusion. The right lower lobe infiltrate looks some better from yesterday. All other labs and films have been reviewed via the EMR. ASSESSMENT: 1. Right lower lobe pneumonia, suspect aspiration pneumonia. 2. Extreme weakness in spite of conditioning per Physical Therapy in prior admission to Swing Bed. 3. History of significant congestive heart failure with significant disability with deconditioning that has not shown improvement in spite of continued diuresis and fluid restrictions. His last ejection fraction was around 21 %. 4. Chronic obstructive pulmonary disease in an ex-smoker. 5. Severe cardiomegaly. 6. History of pacemaker/defibrillator implantation. 7. History of urinary tract infection on previous admission that showed Enterococcus faecalis. Completion of treatment prior to his Swing Bed admission. 8. History of coronary artery disease with several myocardial infarctions. 9. History of ventricular tachycardia in the past requiring cardioversion, currently stable. 10. Chronic pulmonary hypertension with cor pulmonale. 11. History of hypertension. 12. History of hyperlipidemia. 13. Diabetes mellitus on insulin. 14. Chronic renal insufficiency. 15. Recent history of urinary retention on Swing Bed initially requiring Harris placement being seen by Dr. Bowman. Dr. Bowman saw him on Sunday and initially wanted his Harris catheter discontinued on discharge. 16. Severe aortic stenosis. 17. History of hypothyroidism. 18. 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 PLAN: We will continue present supportive care, including continuing his Clindamycin and Levaquin. I have ordered physical therapy so maybe we can progress back to Swing Bed admission at some point in the next day or two. I have also ordered fluid restrictions. Continue to encourage good pulmonary hygiene. I have ordered lab for in the morning. Will continue present supportive care and followup as needed. Dr. Peck is the collaborating physician available for consultation. #[id number] [facility]
--- NOTE | 2016-07-29 19:06 | PCM.CORE ---
Physician DVT/VTE - Nurse DVT Assessment & Total Each Risk Factor Represents 3 Points: Medical PT with Hx of [place], CHF, Severe infection/sepsis Each Risk Factor Represents 2 Points: Age 60-74 Each Risk Factor Represents 1 Point: Medical PT at Bed Rest Each Risk Factor is 1 Point: Obesity (BMI >25), Serious Lung disease (pnemonia < 1month, COPD, emphysema,etc) DVT Assessment Score: 8 - 5 or more Very High Risk Treatments: Early Ambulation *, Sequential Compression Device Pharmacological: Enoxaparin 30mg SQ BID
[2016-07-29] MEDS: LOSARTAN POTASSIUM 25 MG TAB PO SCH (20:26)
[2016-07-29] MEDS: ENOXAPARIN SODIUM 30 MG/0.3 ML SYG SUBCU SCH (20:28)
[2016-07-29] MEDS: INSULIN DETEMIR 100 UNITS/ML PEN SUBCU SCH (21:34)
[2016-07-30] MEDS: SODIUM CHLORIDE 0.9% (FLUSH) 10 ML SYG IV PRN (00:35)
[2016-07-30] MEDS: CLINDAMYCIN IV 900MG 900 MG in PREMIX BAG 1 BAG IVPB SCH ×3 (00:35→18:49)
[2016-07-30] MEDS: TEMAZEPAM 15 MG CAP PO PRN ×2 (00:36→21:26)
[2016-07-30] MEDS: LEVOTHYROXINE SODIUM 0.075 MG TAB PO SCH (06:13)
[2016-07-30] MEDS ORDERED: CLINDAMYCIN IV 900MG 50 ML IVPB ONE ×2 (07:18→17:22)
[2016-07-30] MEDS ORDERED: DIGOXIN 0.125 MG TAB ONE (07:19)
[2016-07-30] MEDS: INSULIN LISPRO 100 UNITS/ML PEN SUBCU SCH ×4 (07:31→21:23)
[2016-07-30] MEDS: AMIODARONE HCL 200 MG TAB PO SCH (08:40)
[2016-07-30] MEDS: CARVEDILOL 3.125 MG TAB PO SCH ×2 (08:40→20:37)
[2016-07-30] MEDS: SPIRONOLACTONE 25 MG TAB PO SCH ×2 (08:41→20:35)
[2016-07-30] MEDS: FUROSEMIDE 40 MG TAB PO SCH ×2 (08:41→17:41)
[2016-07-30] MEDS: FOLIC ACID 1 MG TAB PO SCH (08:41)
[2016-07-30] MEDS: predniSONE 5 MG TAB PO SCH (08:41)
[2016-07-30] MEDS: NON-FORMULARY MEDICATION 1 EA MIS (Fluticasone Furoate-Vilanterol [Breo Ellipta 200-25 Mcg IN SCH (08:42)
[2016-07-30] MEDS: POLYETHYLENE GLYCOL 3350 17 GM PCKT PO SCH ×2 (08:42→08:45)
[2016-07-30] MEDS: IPRATROPIUM/ALBUTEROL 3 ML VIAL NEB SCH ×4 (08:42→19:20)
[2016-07-30] MEDS: DIGOXIN 0.125 MG TAB PO SCH (12:07)
--- NOTE | 2016-07-30 12:10 | PN ---
DATE: 07/30/16 SUPERVISING PHYSICIAN: Tejas Peck M.D. SUBJECTIVE: The patient is sleeping in his hospital bed. He awakens easily. He says he feels somewhat better and denies any increase in shortness of breath , chest pain, nausea or vomiting. OBJECTIVE: VITAL SIGNS: He is afebrile, heart rate 71, blood pressure 106/69, respiratory rate 18, O2 sat 98%. I and O over the last 24 hours is negative 350 mL. RESPIRATORY: Essentially clear to auscultation bilaterally. Diminished at the bases. There are occasional few scattered crackles. CARDIAC : Regular rate and rhythm. ABDOMEN: Soft, nondistended, non-tender. Bowel sounds are positive. NEUROLOGIC: He is awake, alert and oriented times three. EXTREMITIES: He has some mild pitting edema to his lower extremities bilaterally. LABORATORY: Platelets are slightly decreased at 90, neutrophils have increased slightly to 85.1. Sodium 131, potassium 5.3, chloride 95, BUN 45, creatinine 2.05. Blood sugars have run between 97 and 246. Chest x-ray shows no changes. All labs and films have been reviewed via the EMR. ASSESSMENT: 1. Right lower lobe pneumonia, suspect aspiration pneumonia. 2. Extreme weakness in spite of conditioning per Physical Therapy in prior admission to Swing Bed. 3. Hyperkalemia. 4. History of significant congestive heart failure with significant disability with deconditioning that has not shown improvement in spite of continued diuresis and fluid restrictions. His last ejection fraction was around 21 %. 5. Chronic obstructive pulmonary disease in an ex-smoker. 6. Severe cardiomegaly. 7. History of pacemaker/defibrillator implantation. 8. History of urinary tract infection on previous admission that showed Enterococcus faecalis. Completion of treatment prior to his Swing Bed admission. 9. History of coronary artery disease with several myocardial infarctions. 10. History of ventricular tachycardia in the past requiring cardioversion, currently stable. 11. Chronic pulmonary hypertension with cor pulmonale. 12. History of hypertension. 13. History of hyperlipidemia. 14. Diabetes mellitus on insulin. 15. Chronic renal insufficiency. Baseline creatinine is about 1.6. 16. Recent history of urinary retention on Swing Bed initially requiring Harris placement being seen by Dr. Bowman. Dr. Bowman saw him on Sunday and initially wanted his Harris catheter discontinued on discharge. 17. Severe aortic stenosis. 18. History of hypothyroidism. 19. 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 PLAN: We will continue present supportive care as well as antibiotics. I have ordered chest x-ray and lab in the morning. He will continue on fluid restrictions. His potassium is a little high today, so I am going to repeat a potassium this afternoon about 5:00. I am not sure if we may need to give him some Lactulose, but I will evaluate that after it is resulted. Physical therapy has been ordered for tomorrow. Hopefully he can be admitted to Swing Bed in the next day or two. I feel like he is improving, but it is a very slow process. Will continue to monitor him closely and followup as needed. #[id number] [facility]
[2016-07-30] MEDS: PANTOPRAZOLE SODIUM IV 40 MG VIAL IV SCH (16:57)
[2016-07-30] MEDS: levoFLOXacin 750MG IV 750 MG in PREMIX BAG 1 BAG IVPB SCH (17:34)
[2016-07-30] MEDS: ENOXAPARIN SODIUM 30 MG/0.3 ML SYG SUBCU SCH (20:13)
[2016-07-30] MEDS: LOSARTAN POTASSIUM 25 MG TAB PO SCH (20:37)
[2016-07-30] MEDS: INSULIN DETEMIR 100 UNITS/ML PEN SUBCU SCH (20:38)
[2016-07-31] MEDS ORDERED: CLINDAMYCIN IV 900MG 50 ML IVPB ONE ×4 (01:12→21:31)
[2016-07-31] MEDS: CLINDAMYCIN IV 900MG 900 MG in PREMIX BAG 1 BAG IVPB SCH ×3 (01:28→16:49)
[2016-07-31] MEDS: LEVOTHYROXINE SODIUM 0.075 MG TAB PO SCH (06:18)
--- NOTE | 2016-07-31 07:04 | RAD ---
EXAM DESCRIPTION: Chest,2 Views CLINICAL HISTORY: pna COMPARISON: July 29, 2016 FINDINGS: A multilead cardiac pacemaker/defibrillator remains in place. There are several superimposed EKG leads. The heart is enlarged but stable. Mediastinal contours are otherwise unremarkable. Atelectasis or consolidation in the right lung base does not appear significantly changed from the prior exam. There may be a tiny right-sided effusion. The left lung and left pleural space are unremarkable. The bronchovascular markings are within normal limits, and the lungs are not hyperinflated. There is no pneumothorax or acute fracture. IMPRESSION: Right basilar atelectasis or consolidation with a possible tiny right-sided effusion, not significantly changed from 2 days prior. Findings are consistent with provided history of pneumonia. Follow-up chest radiograph after treatment is recommended to document complete resolution and exclude the possibility of an underlying lung lesion. Electronically signed by: Celestino Boone MD 07/31/2016 7:03 AM CDT
[2016-07-31] MEDS: INSULIN LISPRO 100 UNITS/ML PEN SUBCU SCH ×4 (07:57→21:21)
[2016-07-31] MEDS: POLYETHYLENE GLYCOL 3350 17 GM PCKT PO SCH (08:57)
[2016-07-31] MEDS: CARVEDILOL 3.125 MG TAB PO SCH ×2 (08:57→20:10)
[2016-07-31] MEDS: SPIRONOLACTONE 25 MG TAB PO SCH ×2 (08:58→20:11)
[2016-07-31] MEDS: AMIODARONE HCL 200 MG TAB PO SCH (08:58)
[2016-07-31] MEDS: FOLIC ACID 1 MG TAB PO SCH (08:59)
[2016-07-31] MEDS: FUROSEMIDE 40 MG TAB PO SCH ×2 (08:59→16:49)
[2016-07-31] MEDS: predniSONE 5 MG TAB PO SCH (08:59)
[2016-07-31] MEDS: IPRATROPIUM/ALBUTEROL 3 ML VIAL NEB SCH ×4 (09:45→21:20)
[2016-07-31] MEDS: NON-FORMULARY MEDICATION 1 EA MIS (Fluticasone Furoate-Vilanterol [Breo Ellipta 200-25 Mcg IN SCH (10:00)
[2016-07-31] MEDS: DIGOXIN 0.125 MG TAB PO SCH (12:01)
[2016-07-31] MEDS: IV SET AND CAP CHANGE INJ INJ SCH (16:38)
[2016-07-31] MEDS: PANTOPRAZOLE SODIUM TAB 40 MG PO SCH (16:54)
[2016-07-31] MEDS ORDERED: FUROSEMIDE INJ 40 MG/4 ML VIAL IV ONE (16:59)
[2016-07-31] MEDS: FUROSEMIDE INJ 40 MG/4 ML VIAL IV SCH (17:07)
[2016-07-31] MEDS: BUMETANIDE TAB 2 MG TAB PO SCH (17:14)
--- NOTE | 2016-07-31 17:49 | PN ---
DATE: 07/31/16 SUBJECTIVE: The patient is lying in the bed, head elevated. He still complains of shortness of breath and has very little energy to do what he would like to do. A short trip outside in a wheelchair resulted in him feeling a little better in the breathing department. Increased swelling and pitting edema noted of the lower extremities. He is going to be more vigorous in his use of the ZAIDA hose and his SCDs. His IVs are on saline lock and he persists on a 1500 mL per 24 hour fluid restriction. Weight gain is noted. The patient has a significant history of significant congestive heart failure with extremely low ejection fraction of approximately 20%. OBJECTIVE: Afebrile, pulse 67, blood pressure 93/62, pulse oximetry 99% on 2 liters with efforts need to be made in order to reduce the oxygen to prevent any CO2 retention. Increased jugular venous distention noted on the right side of his neck when gazing towards the left. LUNGS: Have diminished breath sounds. HEART: Tones are somewhat distant. ABDOMEN: Obese, 3 to 4+ pitting edema noted of the lower extremities. ZAIDA hose are applied to assist with the removal of some of this fluid. Will require ongoing catheterization to assist with monitoring his output and input ratio. LABORATORY: Potassium is up to 5.1, sodium 132, BUN is up to 52, creatinine up to 2.24, fasting glucose 140. White count is 8,300 with hemoglobin 11.5. Blood cultures are negative. Repeat chest x-ray does reveal persistence of a right lower lobe infiltrate. ASSESSMENT: 1. Acute right lower lobe pneumonia, suspect aspiration pneumonia healthcare facility acquired under treatment with Levaquin and clindamycin. 2. Extreme weakness in spite of conditioning per Physical Therapy with a prior admission to Swing Bed. 3. Hyperkalemia, persistent. 4. History of significant congestive heart failure with severe disability in spite of continued diuresis and fluid restrictions, and attendant pedal edema noted. Last ejection fraction was around 21%. 5. Chronic obstructive pulmonary disease in an ex-smoker. 6. Severe cardiomegaly. 7. Significant renal injury with evidence of worsening renal status. 8. History of pacemaker defibrillator implantation. 9. History of urinary tract infection on previous admission with Enterococcus faecalis. 10. History of coronary artery disease with several myocardial infarctions. 11. History of ventricular tachycardia in the past requiring cardioversion, currently stable. 12. Severe chronic pulmonary hypertension with cor pulmonale. 13. History of hypertension yet now with hypotension possibly related to ventricular failure. 14. Hyperlipidemia. 15. Diabetes mellitus on insulin. 16. Recent history of urinary retention with Harris catheter placed to continue for the meantime. 17. Severe aortic stenosis. 18. History of hypothyroidism on supplement. 19. 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 PLAN: Will continue and stop his oral Lasix and change to IV Lasix with extra dose given at this time. Add Bumex to assist with diuresis. Continue with fluid restrictions. Increased Align because of the clindamycin. Check a urinalysis. The patient's condition is not improving significantly and may be end stage. Will continue to work vigorously with thigh high ZAIDA hose to assist with the edema accumulation. Observe daily weights. Continue with SCDs. Reevaluate and discuss with Cardiology. #[id number] [facility]
[2016-07-31] MEDS: LOSARTAN POTASSIUM 25 MG TAB PO SCH (20:09)
[2016-07-31] MEDS: ENOXAPARIN SODIUM 30 MG/0.3 ML SYG SUBCU SCH (20:09)
[2016-07-31] MEDS: TEMAZEPAM 15 MG CAP PO PRN (20:10)
[2016-07-31] MEDS: INSULIN DETEMIR 100 UNITS/ML PEN SUBCU SCH (20:11)
[2016-07-31] MEDS: BIFIDOBACTERIUM INFANTIS 4 MG CAP PO SCH (20:11)
[2016-08-01] MEDS: CLINDAMYCIN IV 900MG 900 MG in PREMIX BAG 1 BAG IVPB SCH ×3 (00:30→17:43)
[2016-08-01] MEDS: LEVOTHYROXINE SODIUM 0.075 MG TAB PO SCH (06:09)
[2016-08-01] MEDS ORDERED: CLINDAMYCIN IV 900MG 50 ML IVPB ONE ×2 (07:33→17:31)
[2016-08-01] MEDS: INSULIN LISPRO 100 UNITS/ML PEN SUBCU SCH ×4 (08:11→21:13)
[2016-08-01] MEDS: NON-FORMULARY MEDICATION 1 EA MIS (Fluticasone Furoate-Vilanterol [Breo Ellipta 200-25 Mcg IN SCH (08:14)
[2016-08-01] MEDS: IPRATROPIUM/ALBUTEROL 3 ML VIAL NEB SCH ×4 (08:14→20:20)
[2016-08-01] MEDS ORDERED: BIFIDOBACTERIUM INFANTIS 4 MG CAP PO SCH (09:00)
[2016-08-01] MEDS: CARVEDILOL 3.125 MG TAB PO SCH ×2 (09:08→21:09)
[2016-08-01] MEDS: BIFIDOBACTERIUM INFANTIS 4 MG CAP PO SCH ×2 (09:15→21:09)
[2016-08-01] MEDS: predniSONE 5 MG TAB PO SCH (09:15)
[2016-08-01] MEDS: AMIODARONE HCL 200 MG TAB PO SCH (09:15)
[2016-08-01] MEDS: DIGOXIN 0.125 MG TAB PO SCH ×2 (09:16→12:02)
[2016-08-01] MEDS: BUMETANIDE TAB 2 MG TAB PO SCH (09:16)
[2016-08-01] MEDS: FOLIC ACID 1 MG TAB PO SCH (09:17)
[2016-08-01] MEDS: SPIRONOLACTONE 25 MG TAB PO SCH ×2 (09:17→21:09)
[2016-08-01] MEDS: FUROSEMIDE INJ 40 MG/4 ML VIAL IV SCH ×2 (09:18→17:35)
[2016-08-01] MEDS: POLYETHYLENE GLYCOL 3350 17 GM PCKT PO SCH (09:18)
--- NOTE | 2016-08-01 15:30 | PN ---
DATE: 08/01/16 SUBJECTIVE: The patient is sitting up in a chair and in many ways feels a little stronger today than yesterday. Significant shortness of breath persists , but he is able to ambulate from the chair to the bathroom without assistance and was unable to do so yesterday. He has been in a wheelchair for physical therapy to give him some activity. Appetite is still poor. Thigh high ZAIDA hose have helped a little bit by reducing some of the extra tissue fluid and pitting edema. Abdomen is still somewhat tight, but less so compared to yesterday. OBJECTIVE: VITAL SIGNS: Afebrile. Pulse 70. Blood pressure 106/71. Respirations 16. Pulse oximetry 97% on 2 liters nasal cannula and will continue to adjust to a lower level. LUNGS: Less rhonchi today compared to yesterday with improved respiratory efforts. HEART: Pulse is otherwise fairly regular with pacemaker rhythm noted on rhythm strip. LABORATORY: Sodium 132, serum osmolality normal, potassium 4.9, BUN 54, creatinine down to 2.19. Fasting glucose 100. Troponin 0.06, beta natriuretic peptide has come down from 1780 to 922 in about four days. Weight has come down a little bit today with some increased output noted compared to previously. Still with significant edema around the body in an anasarca presentation. ASSESSMENT: 1. Acute right lower lobe pneumonia, suspect aspiration pneumonia, healthcare facility acquired under treatment with Levaquin and clindamycin as observation and treatment continues. 2. Hyperkalemia, showing some slight improvement. 3. History of significant end-stage congestive heart failure with combined systolic/diastolic components and severe disability. Continue diuresis and fluid restrictions. Last ejection fraction was approximately 21%. 4. Severe chronic obstructive pulmonary disease in an ex-smoker. 5. Severe cardiomegaly with cardiomyopathy of a dilated nature. 6. Significant renal injury with evidence of worsening renal status, requiring special care to avoid over diuresis. 7. Extreme weakness in spite of conditioning to Swing Bed rehab status with rehab to continue. 8. History of pacemaker/defibrillator implantation. 9. History of previous urinary tract infection on Enterococcus faecalis. 10. History of coronary artery disease with several myocardial infarctions. 11. History of ventricular tachycardia in the past requiring cardioversion, currently stable. 12. Severe chronic pulmonary hypertension with cor pulmonale, end-stage. 13. History of hypertension yet now with normal or hypotensive episodes. 14. Hyperlipidemia. 15. Diabetes mellitus on insulin. 16. Recent history of urinary retention with Harris catheter requiring ongoing drainage. 17. History of severe aortic stenosis. 18. Possible tricuspid insufficiency from the pacemaker wire. 19. History of hypothyroidism on supplement. 20. 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 PLAN: Condition is discussed with Dr. Capone, photoengraving retoucher, who is well acquainted with the patient. The patient is encouraged to continue with diuresis, gentle at this time to avoid worsening kidney failure. He is currently suggested to continue on the Lasix 40 mg twice a day with p.o. Bumex and observe the renal function closely. Continue with fluid restrictions. Special constrictive dressings to the lower extremities to help remove some of the significant edema accumulation there. Dr. Capone wishes us to keep in touch with him, phone number [phone], and to contact him at his office. If condition fails to improve and the patient requires cardiac and/or nephrology support, consider transferring the patient to the hospitalist service at [facility]. Transfer center is [phone]. Recheck lab and close observation with general condition being very tenuous with the patient having several organ failures present at the same time. #[id number] [facility]
[2016-08-01] MEDS: levoFLOXacin 750MG IV 750 MG in PREMIX BAG 1 BAG IVPB SCH (15:59)
[2016-08-01] MEDS: PANTOPRAZOLE SODIUM TAB 40 MG PO SCH (16:56)
[2016-08-01] MEDS: ENOXAPARIN SODIUM 30 MG/0.3 ML SYG SUBCU SCH (20:25)
[2016-08-01] MEDS: LOSARTAN POTASSIUM 25 MG TAB PO SCH (21:09)
[2016-08-01] MEDS: INSULIN DETEMIR 100 UNITS/ML PEN SUBCU SCH (21:13)
[2016-08-01] MEDS: TEMAZEPAM 15 MG CAP PO PRN (22:56)
[2016-08-02] MEDS ORDERED: CLINDAMYCIN IV 900MG 50 ML IVPB ONE ×4 (00:16→23:25)
[2016-08-02] MEDS: CLINDAMYCIN IV 900MG 900 MG in PREMIX BAG 1 BAG IVPB SCH ×3 (00:42→17:25)
[2016-08-02] MEDS: SODIUM CHLORIDE 0.9% (FLUSH) 10 ML SYG IV PRN (00:42)
[2016-08-02] MEDS: LEVOTHYROXINE SODIUM 0.075 MG TAB PO SCH (05:49)
[2016-08-02] MEDS: NON-FORMULARY MEDICATION 1 EA MIS (Fluticasone Furoate-Vilanterol [Breo Ellipta 200-25 Mcg IN SCH (08:20)
[2016-08-02] MEDS: IPRATROPIUM/ALBUTEROL 3 ML VIAL NEB SCH ×4 (08:20→20:41)
[2016-08-02] MEDS: INSULIN LISPRO 100 UNITS/ML PEN SUBCU SCH ×4 (08:44→21:16)
[2016-08-02] MEDS: FUROSEMIDE INJ 40 MG/4 ML VIAL IV SCH ×2 (08:46→17:24)
[2016-08-02] MEDS: AMIODARONE HCL 200 MG TAB PO SCH (08:50)
[2016-08-02] MEDS: BUMETANIDE TAB 2 MG TAB PO SCH (08:51)
[2016-08-02] MEDS: BIFIDOBACTERIUM INFANTIS 4 MG CAP PO SCH ×2 (08:52→20:34)
[2016-08-02] MEDS: SPIRONOLACTONE 25 MG TAB PO SCH ×2 (08:53→20:34)
[2016-08-02] MEDS: FOLIC ACID 1 MG TAB PO SCH (08:53)
[2016-08-02] MEDS: predniSONE 5 MG TAB PO SCH (08:53)
[2016-08-02] MEDS: CARVEDILOL 3.125 MG TAB PO SCH ×2 (08:54→20:37)
[2016-08-02] MEDS: POLYETHYLENE GLYCOL 3350 17 GM PCKT PO SCH (09:01)
--- NOTE | 2016-08-02 10:24 | RAD ---
EXAM DESCRIPTION: Chest,2 Views CLINICAL HISTORY: pneumonia COMPARISON: July 31, 2016 TECHNIQUE: PA/lateral FINDINGS: The left lung is well expanded without significant infiltrate. The right lung base remains elevated with either an eventration of the diaphragm or basilar atelectasis or layering pleural fluid but little changed from previous day's study. Moderate cardiomegaly with upper normal vascularity with stable position of ICD. The ruth and mediastinum demonstrate normal contours. The bony spine and chest wall is normal for age in appearance. IMPRESSION: Stable chest with cardiomegaly and upper normal vascularity with probable modest effusion and/or atelectasis right lung base, unchanged Electronically signed by: Jeremy Gaines MD 08/02/2016 10:24 AM CDT
[2016-08-02] MEDS: DIGOXIN 0.125 MG TAB PO SCH (11:31)
[2016-08-02] MEDS: PANTOPRAZOLE SODIUM TAB 40 MG PO SCH (17:24)
[2016-08-02] MEDS ORDERED: FLUCONAZOLE 100 MG TAB PO ONE (18:00)
[2016-08-02] MEDS: ENOXAPARIN SODIUM 30 MG/0.3 ML SYG SUBCU SCH (20:34)
[2016-08-02] MEDS: LOSARTAN POTASSIUM 25 MG TAB PO SCH (20:34)
[2016-08-02] MEDS: NYSTATIN SUSPENSION 5 ML UD MT SCH (21:17)
[2016-08-02] MEDS: INSULIN DETEMIR 100 UNITS/ML PEN SUBCU SCH (21:17)
--- NOTE | 2016-08-02 21:39 | PN ---
DATE: 08/02/16 SUPERVISING PHYSICIAN: Jeremy Ford M.D. SUBJECTIVE: The patient is sitting in the chair. Notes that he continues to become a little stronger daily and feels better than previous days. he continues to have shortness of breath with any ambulatory efforts, but is able to continue to participate with his physical therapy to some degree. He notes that the swelling on his legs has decreased somewhat with the ZAIDA hose and his abdomen remains with some edema. He remains afebrile. OBJECTIVE: VITAL SIGNS: T max 97.9, pulse 70, blood pressure 94/60, respirations 20, O2 sat showing 98% on nasal cannula at 1 liter. I's and O's show a negative balance of 910 with 920 in, 1830 out. His weight is down again to 110.6 compared to maximum of 112.0 since admission. GENERAL: The patient appears to be in no acute distress resting sitting in the chair, although he does get quite winded with any ambulatory effort. CHEST: Lungs are fairly clear to auscultation with no rhonchi noted, just diminished on the right lower aspect posteriorly. HEART: Regular rate and rhythm. ABDOMEN: Obese, slightly distended with some edema noted to the lateral flank areas. EXTREMITIES: There is 2+ edema to the bilateral lower extremities with ZAIDA hose in place. NEUROLOGIC: He is alert and oriented times three. LABORATORY: Chemistries continue to show low sodium persistent but stable at 132, potassium is normal at 4.3, BUN has improved somewhat, it is down to 53 compared to a maximum of 54 with creatinine also showing improvements down to 2.13 compared to a maximum of 2.24 since admission. Glucoses have been fairly stable from 110 to 191, calcium 8.1. MICROBIOLOGY: Sputum culture final results showed heavy growth of possible fungus which was sent out to reference lab for identification. Blood cultures remain negative after 5 days. RADIOLOGY: Repeat chest x-ray two view per radiology interpretation shows a stable chest with cardiomegaly with upper normal vascularity with probable modest effusion and/or atelectasis of the right lung base which is unchanged. ASSESSMENT: 1. Acute right lower lobe pneumonia, suspected aspiration pneumonia healthcare facility acquired. Continue treatment of Levaquin and Clindamycin with close observation continued. 2. Hyperkalemia, resolved. 3. History of significant end stage congestive heart failure with combined systolic/diastolic component with severe disability. Continue with diuresis and fluid restrictions. Last ejection fraction was noted to be 21%. 4. Severe chronic obstructive pulmonary disease in an ex-smoker. 5. Severe cardiomegaly with cardiomyopathy of a dilated nature. 6. Significant renal injury with evidence of worsening renal status, although showing improvement after diuresis. 7. Extreme weakness despite having spent days on Swing Bed for conditioning and rehab requiring continued rehab once the patient is able to be discharged. 8. History of pacemaker/defibrillator implantation. 9. History of urinary tract infection with previous Enterococcus faecalis at [facility]. 10. History of coronary artery disease with several myocardial infarctions. 11. History of ventricular tachycardia in the past requiring cardioversion, currently stable. 12. Severe chronic pulmonary hypertension with cor pulmonale, end-stage. 13. History of hypertension with the patient being normal, hypotensive at times. 14. Hyperlipidemia. 15. Diabetes mellitus on insulin. 16. Recent history of urinary retention with continued need for Harris catheter given the patient's acute status. 17. History of severe aortic stenosis. 18. Possible tricuspid insufficiency from the pacemaker wire. 19. History of hypothyroidism on supplementation. 20. 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 21. Sputum culture showing heavy growth of fungal elements with the patient showing to be clinically stable, afebrile with some improvement on radiographic studies with concern for possible oral Candidiasis, therefore the patient will require antifungals and close monitoring. PLAN: Will continue with diuresis gentle 40 mg twice daily along with Bumex and continue to monitor his renal function closely. He will remain on antibiotics to include parenteral Clindamycin and Levaquin with close monitoring again of his kidney function per Pharmacy protocol. At this point, the patient has shown some clinical improvement. Will continue with current plan and monitor closely. Should the patient show any decline in his physiological status clinically, I certainly will continue to keep in touch with Dr. Capone taking into consideration possible transfer to [facility]. In regards to the fungal findings of the sputum culture, the patient remains clinically stable. I have requested records from his previous admission at [facility] to see if he actually had an Infectious Disease consultation at some point. The cultures have been sent off. Will await those final results which could take up to a week for completion. Given that he has been on multiple antibiotics and is diabetic, will start him on Align as well as Nystatin swish and swallow, and Diflucan initially with 200 mg loading with 100 mg daily. Will continue to monitor the patient closely and treat appropriately up until discharge, hopefully to be discharged within the next 2 to 3 days and further need for continuation on Swing Bed for reconditioning. Until then, will follow the patient closely and treat appropriately. #[id number] [id number]
[2016-08-02] MEDS: TEMAZEPAM 15 MG CAP PO PRN (22:47)
[2016-08-03] MEDS: CLINDAMYCIN IV 900MG 900 MG in PREMIX BAG 1 BAG IVPB SCH ×3 (00:35→17:56)
[2016-08-03] MEDS: SODIUM CHLORIDE 0.9% (FLUSH) 10 ML SYG IV PRN (00:37)
[2016-08-03] MEDS: LEVOTHYROXINE SODIUM 0.075 MG TAB PO SCH (06:07)
[2016-08-03] MEDS: NON-FORMULARY MEDICATION 1 EA MIS (Fluticasone Furoate-Vilanterol [Breo Ellipta 200-25 Mcg IN SCH (08:15)
[2016-08-03] MEDS: IPRATROPIUM/ALBUTEROL 3 ML VIAL NEB SCH ×4 (08:15→20:25)
[2016-08-03] MEDS ORDERED: CLINDAMYCIN IV 900MG 50 ML IVPB ONE ×2 (08:32→17:30)
[2016-08-03] MEDS: INSULIN LISPRO 100 UNITS/ML PEN SUBCU SCH ×4 (09:01→21:09)
[2016-08-03] MEDS: POLYETHYLENE GLYCOL 3350 17 GM PCKT PO SCH (09:02)
[2016-08-03] MEDS: FUROSEMIDE INJ 40 MG/4 ML VIAL IV SCH ×2 (09:02→17:50)
[2016-08-03] MEDS: NYSTATIN SUSPENSION 5 ML UD MT SCH ×4 (09:02→20:37)
[2016-08-03] MEDS: BIFIDOBACTERIUM INFANTIS 4 MG CAP PO SCH ×2 (09:03→20:37)
[2016-08-03] MEDS: CARVEDILOL 3.125 MG TAB PO SCH ×2 (09:03→20:37)
[2016-08-03] MEDS: BUMETANIDE TAB 2 MG TAB PO SCH (09:03)
[2016-08-03] MEDS: AMIODARONE HCL 200 MG TAB PO SCH (09:03)
[2016-08-03] MEDS: FLUCONAZOLE 100 MG TAB PO SCH (09:03)
[2016-08-03] MEDS: SPIRONOLACTONE 25 MG TAB PO SCH ×2 (09:04→20:37)
[2016-08-03] MEDS: predniSONE 5 MG TAB PO SCH (09:04)
[2016-08-03] MEDS: FOLIC ACID 1 MG TAB PO SCH (09:04)
[2016-08-03] MEDS: DIGOXIN 0.125 MG TAB PO SCH (12:40)
[2016-08-03] MEDS: levoFLOXacin 750MG IV 750 MG in PREMIX BAG 1 BAG IVPB SCH (16:14)
[2016-08-03] MEDS: IV SET AND CAP CHANGE INJ INJ SCH (16:15)
[2016-08-03] MEDS: PANTOPRAZOLE SODIUM TAB 40 MG PO SCH (16:15)
[2016-08-03] MEDS: ENOXAPARIN SODIUM 30 MG/0.3 ML SYG SUBCU SCH (19:33)
[2016-08-03] MEDS: LOSARTAN POTASSIUM 25 MG TAB PO SCH (20:37)
--- NOTE | 2016-08-03 21:03 | PN ---
DATE: 08/03/16 SUPERVISING PHYSICIAN: Jeremy Ford M.D. SUBJECTIVE: The patient is resting in bed. Says he continues to feel good but is still continuing to have shortness of breath, but is continuing to be able to participate with his physical therapy. He currently remains afebrile. He has not had any nausea, vomiting or diarrhea. OBJECTIVE: VITAL SIGNS: T max 97.9, pulse 68, blood pressure 90/60, respirations 18, O2 sat 98% on nasal cannula at rest. I's and O's show a negative balance of 1250 with 1400 in, 2650 out. Weight is 109.4 kg. GENERAL: The patient appears to be in no acute distress. CHEST: Lungs are clear to auscultation, just diminished towards the posterior aspect on the right base. There is no notable rhonchi or wheezing. HEART: Regular rate and rhythm. ABDOMEN: Obese but soft, non-tender. Positive bowel sounds. There is some anasarca noted towards the bilateral flank areas, although decreased from previous days. EXTREMITIES: Remains with 1 to 2+ edema bilaterally. To current exam, he has his hose off and he has had his feet down to eat breakfast. NEUROLOGIC: He is alert and oriented times three. LABORATORY: White count shows continued stable with an H&H of 11.1 and 34.6, white count is 7.0, platelet count 105,000 which is increased from previous days. Will continue to closely monitor. Chemistries show just a low sodium of 133, potassium was normal at 4.4, BUN and creatinine continue to show stabilization with BUN continuing to show improvement and is down to 48 with creatinine up just slightly from previous day to 2.16. Glucoses range from 104 to 232. MICROBIOLOGY: Sputum culture final report shows just heavy growth of possible fungus that was sent for reference identification which is still pending. Blood cultures remain after 5 days. RADIOLOGY: There are no pending studies. ASSESSMENT: 1. Right lower lobe pneumonia suspected to be aspiration pneumonia healthcare facility acquired showing good resolution on radiographic studies with the patient being on Levaquin and Clindamycin and clinically showing improvement with now a full course of 7 days treatment. 2. Hyperkalemia, resolved. 3. History of significant end stage congestive heart failure with combined systolic/diastolic component with severe disability with continued diuresis and fluid restrictions with last ejection fraction noted to be 21%. 4. Severe chronic obstructive pulmonary disease in an ex-smoker. 5. Severe cardiomegaly with cardiomyopathy of a dilated nature. 6. Significant renal injury with evidence of worsening renal status, although now showing improvement with diuresis and showing to be stabilizing. 7. Extreme weakness having previously been on Swing Bed for conditioning and rehab requiring continued rehab once the patient is discharged. 8. History of pacemaker/defibrillator implantation. 9. History of urinary tract infection previously with Enterococcus faecalis treated at [facility]. 10. History of coronary artery disease with several myocardial infarctions. 11. History of ventricular tachycardia in the past requiring cardioversion, currently showing to be stable. 12. Severe chronic pulmonary hypertension with cor pulmonale, end-stage. 13. History of hypertension although with the patient now being hypotensive at times. 14. Hyperlipidemia. 15. Diabetes mellitus on insulin, stable. 16. Recent history of urinary retention having previously had a transurethral resection of the prostate now with continued Harris catheter on Acute Care with anticipation of removal within the next 24 hours. 17. History of severe aortic stenosis. 18. Possible tricuspid insufficiency from the pacemaker wire. 19. History of hypothyroidism on supplementation. 20. 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 21. Sputum culture on current admission showing heavy growth of fungal elements with the patient showing to be clinically stable, afebrile and showing improvement on radiographic studies being started currently on antifungals to include Diflucan awaiting final culture results. PLAN: The patient is showing some clinical improvement. He has finished a 7 day course of antibiotics and today will stop those, and closely observe with anticipation of possibly discharging back to Swing Bed in the near future, either tomorrow or the next. Will continue with diuresis as he continues to show good output and is continuing to pull off a significant amount of fluid. We need to start doing some bladder training and consider removing Harris in the near future. Will certainly need to continue to keep in touch with his production or plant engineer, Dr. Capone, with any further need of treatment in regards to his blood pressure and his cardiac history. Will continue to monitor the patient closely and anticipate discharge to Swing Bed soon. Until then, will treat appropriately. #[id number] [facility]
[2016-08-03] MEDS: INSULIN DETEMIR 100 UNITS/ML PEN SUBCU SCH (21:08)
[2016-08-04] MEDS: TEMAZEPAM 15 MG CAP PO PRN (00:44)
[2016-08-04] MEDS: LEVOTHYROXINE SODIUM 0.075 MG TAB PO SCH (06:09)
[2016-08-04] MEDS: INSULIN LISPRO 100 UNITS/ML PEN SUBCU SCH ×2 (08:09→12:01)
[2016-08-04] MEDS: IPRATROPIUM/ALBUTEROL 3 ML VIAL NEB SCH ×2 (08:40→12:20)
[2016-08-04] MEDS: NON-FORMULARY MEDICATION 1 EA MIS (Fluticasone Furoate-Vilanterol [Breo Ellipta 200-25 Mcg IN SCH (08:40)
[2016-08-04] MEDS: predniSONE 5 MG TAB PO SCH (09:07)
[2016-08-04] MEDS: BIFIDOBACTERIUM INFANTIS 4 MG CAP PO SCH (09:07)
[2016-08-04] MEDS: CARVEDILOL 3.125 MG TAB PO SCH (09:07)
[2016-08-04] MEDS: SPIRONOLACTONE 25 MG TAB PO SCH (09:08)
[2016-08-04] MEDS: FLUCONAZOLE 100 MG TAB PO SCH (09:08)
[2016-08-04] MEDS: AMIODARONE HCL 200 MG TAB PO SCH (09:08)
[2016-08-04] MEDS: BUMETANIDE TAB 2 MG TAB PO SCH (09:09)
[2016-08-04] MEDS: FOLIC ACID 1 MG TAB PO SCH (09:09)
[2016-08-04] MEDS: NYSTATIN SUSPENSION 5 ML UD MT SCH ×2 (09:10→13:47)
[2016-08-04] MEDS: FUROSEMIDE INJ 40 MG/4 ML VIAL IV SCH (09:10)
[2016-08-04] MEDS: POLYETHYLENE GLYCOL 3350 17 GM PCKT PO SCH (09:14)
[2016-08-04 10:37] VITALS: BP 98/62; TEMP 97.1
[2016-08-04] MEDS: DIGOXIN 0.125 MG TAB PO SCH (12:01)
[2016-08-04 13:20] VITALS: O2SAT 94
--- NOTE | 2016-08-07 10:09 | DS ---
SUPERVISING PHYSICIAN: Tejas Peck MD DISCHARGE DIAGNOSIS: 1. Right lower lobe pneumonia, suspected to be aspiration pneumonia, healthcare facility acquired, showing good resolution on radiographic studies with the patient being on Levaquin and clindamycin for total treatment of 7 days, showing radiographic improvement and clinical improvement. 2. Hyperkalemia, resolved. 3. History of significant endstage congestive heart failure with combined systolic/diastolic component with severe disability with continued diuresis and fluid restrictions with last ejection fraction noted to be 21%. 4. Severe chronic obstructive pulmonary disease in an ex-smoker. 5. Severe cardiomegaly with cardiomyopathy of a dilated nature. 6. Significant renal injury with evidence of worsening renal status through admission, although showing improvement with diuresis and showing to be stable at discharge. 7. Extreme weakness having previously been on Swing Bed for conditioning and rehab requiring continued rehab once the patient is discharged. 8. History of pacemaker/defibrillator implantation. 9. History of urinary tract infection previously with Enterococcus faecalis treated at [facility] to completion. 10. History of coronary artery disease with several myocardial infarctions. 11. History of ventricular tachycardia in the past requiring cardioversion, stable during admission. 12. Severe chronic pulmonary hypertension with cor pulmonale, endstage. 13. History of hypertension, although with the patient was hypotensive at times through admission. 14. Hyperlipidemia. 15. Diabetes mellitus on insulin, stable. 16. Recent history of urinary retention having previously had a transurethral resection of the prostate, having continued Harris catheter on Acute Care with Harris catheter removed prior to discharge. 17. History of severe aortic stenosis. 18. Possible tricuspid insufficiency from the pacemaker wire. 19. History of hypothyroidism on supplementation. 20. 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 21. Sputum culture on current admission showing heavy growth of fungal elements with the patient showing to be clinically stable, afebrile and showing improvement on radiographic studies being started on antifungals to include Diflucan, awaiting final culture results. HISTORY OF PRESENT ILLNESS: Mr. Reynaga is a 89year-old, male patient who originally was admitted to the hospital after a transfer from [facility] for Swing Bed admission and specific rehab for strengthening to allow him to safely return home. Originally he had been admitted to [facility] in early June and was transferred to [facility] due to developing a significant bladder outlet obstruction and Dr. Bowman placed a catheter after he was transferred to [facility]. Dr. Bowman did a TURP there then he was discharged home on 07/04/16. Over the next few days, he had increasing weight gain, edema and shortness of breath, and was readmitted to [facility] on 07/11 with an acute exacerbation of his congestive heart failure. His BNP at that time was 2200. He was stabilized and at that point he was discharged to [facility] for Swing Bed admission. It is to be noted that he is normally on Lasix 80 mg b.i.d. His Lasix was changed to 40 mg daily upon discharge from [facility]. He was given physical therapy and rehabilitation, but he was very slowly progressing and during this time his weight increased as well as his lower extremity edema. His Lasix was increased to his previous dosage, but he became significantly weaker to the point where he was unable to participate in his physical therapy. On date of admission, in his room, Physical Therapy just transferred him from his hospital bed to his chair and his heart rate went up into the 120s, oxygen saturation dropped into the low 80s. He became very dyspneic, but after a few minutes his vitals did normalize. A few minutes later, his bedside nurse came in to give him some water and it was been reported that multiple times he had difficulty swallowing and had actually choked on his water, but it was extremely noticeable on date of admission. Again, his oxygen saturations dropped into the mid 80s. A chest x-ray was obtained and it was found that he had right lower lobe pneumonia. It is suspected that he had aspiration pneumonia as he was witnessed aspirating fluids prior to his x-ray. He has an ejection fraction of about 21 to 25% previously and he had become markedly weaker over the previous days, so after a lengthy discussion with the patient and his , and poor progression, it was decided that we would actively treat him for pneumonia on Acute Care. His agreed that his code status should be changed to Do Not Resuscitate and continue active care. He was discharged from Swing Bed and readmitted to the hospital as an inpatient status and be treated for suspected aspiration pneumonia. LABORATORY: CBC did show white count remained within normal limits, initially 7.7 and at discharge was 7.0. Hemoglobin and hematocrit remained stable and at discharge were 11.1 and 34.6. Platelet count 105,000, differential was within normal limits. Chemistries initially on admission to Acute Care showed sodium 131, potassium 5.4, BUN 45, creatinine 1.96. Glucose 175. Liver functions within normal limits. BNP 1780. Through his admission and treatment and at time of discharge, electrolytes had normalized. Potassium 4.4, sodium 135, BUN 48, creatinine 1.97. BNP remained elevated at 1450. Initial urinalysis showed a moderate amount of blood on dipstick. Microscopic showed 5 to 10 RBCs, but otherwise within normal limits. MICROBIOLOGY: Sputum culture showed heavy growth of fungus and was sent out for cultures. Blood cultures remained negative after 5 days. RADIOLOGY: Chest x-ray upon admission showed right basilar airspace opacity with pleural effusion. Multiple x-rays were completed and on 08/02, final x- ray per radiology interpretation showed stable chest with cardiomegaly with upper normal vasculature with probable modest effusion in the right lung base, unchanged. No other radiographic studies were completed. HOSPITAL COURSE: Mr. Reynaga was admitted as noted in history of present illness for possible concern for aspiration pneumonia and exacerbation of congestive heart failure. He was provided with diuresis with IV Lasix as well as started on antibiotics for concerns for underlying pneumonia. He did clinically progress well, but slowly. He was able to assist with his physical therapy. He completed a round of antibiotics for 7 days and was transitioned off antibiotics as he was felt clinically well enough to be continued without any evidence of shown on radiographic studies, nor was he febrile or with a leukocytosis. On the morning of discharge, he was felt clinically well enough to be discharged. PLAN: Mr. Reynaga was discharged on 08/04/16 to have close clinical followup with Dr. Ríos on 08/07/16 as scheduled. He was to call the office on Sunday to secure an appointment. He was to resume his home medications as instructed. He was to restrict his total daily fluids to less than 1500 mL per day. Arrangements were made for a wheelchair. He was to wear his oxygen as instructed. He was to start his new medications as directed. If he had any shortness of breath, increasing edema, or any other symptoms, he was to return to the hospital. He was encouraged to wear compression hose on both legs to help decrease edema and to keep his legs elevated when sitting. At time of discharge, new prescriptions included: 1. Diflucan 100 mg daily, #7. 2. Nystatin 100,000 units 4 times daily, #1 bottle, swish and swallow for 7 days. DIET: Diabetic diet. ACTIVITY: Increase activity as tolerated. Walk as tolerated with walker or wheelchair. CONDITION AT DISCHARGE: Stable. #[id number] [facility]
== END 2016-08-04 15:15 | disposition home health service (06) | DRG 177 ==
LOC: MS 12:21
PROVIDERS: ADMIT Nurse Practitioner Acute Care; ATTEND Nurse Practitioner Family
DX: J69.0 Pneumonitis due to inhalation of food and vomit (principal); I50.43 Acute on chronic combined systolic (congestive) and diastolic (congestive) heart failure; J44.0 Chronic obstructive pulmonary disease with (acute) lower respiratory infection; I42.0 Dilated cardiomyopathy; T82.897A Other specified complication of cardiac prosthetic devices, implants and grafts, initial encounter; I13.0 Hypertensive heart and chronic kidney disease with heart failure and stage 1 through stage 4 chronic kidney disease, or unspecified chronic kidney disease; B48.8 Other specified mycoses; I48.2 Chronic atrial fibrillation; N18.9 Chronic kidney disease, unspecified; E87.5 Hyperkalemia; M62.81 Muscle weakness (generalized); I25.10 Atherosclerotic heart disease of native coronary artery without angina pectoris; I27.2 Other secondary pulmonary hypertension; I95.9 Hypotension, unspecified; I35.0 Nonrheumatic aortic (valve) stenosis; I36.1 Nonrheumatic tricuspid (valve) insufficiency; E03.9 Hypothyroidism, unspecified; M19.90 Unspecified osteoarthritis, unspecified site; H54.42 Blindness, left eye, normal vision right eye; E66.9 Obesity, unspecified; I25.2 Old myocardial infarction; Q15.0 Congenital glaucoma; Z79.899 Other long term (current) drug therapy; Z85.46 Personal history of malignant neoplasm of prostate; Z66 Do not resuscitate; Z88.6 Allergy status to analgesic agent; Z87.440 Personal history of urinary (tract) infections; Z96.651 Presence of right artificial knee joint; Z87.891 Personal history of nicotine dependence; Z95.810 Presence of automatic (implantable) cardiac defibrillator; Z98.890 Other specified postprocedural states

== ENCOUNTER → 2016-09-01 | Outpatient (CLI) | payer MEDICARE | END | disposition home or self-care (01) | LOC: BFHH 08:46 | PROVIDERS: ATTEND Family Medicine | DX: E11.9 Type 2 diabetes mellitus without complications (principal); N18.9 Chronic kidney disease, unspecified; J44.9 Chronic obstructive pulmonary disease, unspecified ==